=== PATIENT | male | born 1945 | race Caucasian/White ===

== ENCOUNTER 2017-06-14 13:14 | Emergency (ER) | payer MEDICARE, BC, SELFPAY ==
[2017-06-14 13:15] VITALS: BP 149/75; PULSE 107; RESP 17; TEMP 36.4; O2SAT 97; BMI 27.3
--- NOTE | 2017-06-14 14:45 | RAD_ITS ---
STUDY: X-RAY - LEFT ANKLE REASON FOR EXAM: Male, 72 years old. Pain following a fall. TECHNIQUE: 3 view(s) of the ankle. COMPARISON: None. FINDINGS: Normal visualized distal tibia and fibula. Nondisplaced avulsion fracture of the medial malleolus. Nondisplaced oblique fracture of the lateral malleolus. Normal tibiotalar articulation and ankle mortise. Normal visualized talus and calcaneus. The visualized subtalar, talonavicular, calcaneocuboid and tarsal articulations are normal. Diffuse soft tissue swelling. RAD/Ankle min 3 Views IMPRESSION: Nondisplaced avulsion fracture of the medial malleolus as well as oblique fracture of the lateral malleolus with diffuse soft tissue swelling. Electronically Signed: Alex Cevallos MD at 15:18 EST Tel [phone], Service support ,
[2017-06-14] MEDS: Acetaminophen 500 MG Tablet 1000 MG PO (14:47)
--- NOTE | 2017-06-14 16:18 | ED.DCSUM_ITS ---
- ER Visit Summary Date of Service: 06/14/17 Chief Complaint: Ankle injury History of Present Illness: The patient is a 72 M who injured his left ankle yesterday. He felt tired and actually fell asleep when he was standing. This happens to him from time to time. During the fall, he woke up but could not catch himself. He fell and twisted his left ankle. Denies any other injuries or complaints. He does fall asleep from time to time and does not want to be evaluated for this. Physical Examination: Vital signs unremarkable. Head and neck atraumatic. Heart regular. Lungs clear. Abdomen soft. Left ankle is diffusely swollen and tender bilaterally. The right ankle is atraumatic. Foot is nontender. Proximal tib/fib nontender. Knee and the remainder of his left leg unremarkable. Pulses and sensation intact. Skin intact. Test Results: X-ray shows bimalleolar fracture. Emergency Department Course and Treatment: Patient was treated with Tylenol. Pain was under control. I discussed the findings with Dr. Nye. Patient has used crutches before and feels comfortable with crutches. He said he can be careful and will not fall asleep. Splint was placed. Patient was neurovascularly intact afterwards. Precautions were discussed. He will follow- up as an outpatient with orthopedics. Rest, ice, elevate. Short course of [place]. Wiggle toes intermittently. Return if worse. Elevation was stressed again. Treatment Plan: As above Disposition: Discharged Impression: 1. Left bimalleolar fracture This note was generated with [employer] dictation software. It may contain incorrect words, spelling, and punctuation that were not noted in review of the chart prior to signing ED Disposition - Plan for ED Patient: Chief Complaint: Lower Extremity Injury Referrals: Care Physician,No Primary [Primary Care Provider] -
--- NOTE | 2017-06-14 16:20 | DCINST.ED_ITS ---
ED Disposition - Plan for ED Patient: Chief Complaint: Lower Extremity Injury Instructions: ED Fx Ankle General Prescriptions: Hydrocodone Bitart/Apap 5-325 [[place] 5/325] 1 tab PO Q6H PRN PRN 3 Days #10 tab PRN Reason: Pain Referrals: Hannah Mckenna DO [STAFF PHYSICIAN] -
[2017-06-14 16:47] VITALS: PULSE 100; RESP 16; O2SAT 98
== END 2017-06-14 16:48 | disposition home or self-care (01) ==
PROVIDERS: Emergency Provider Emergency Medicine
DX: S82.845A Nondisplaced bimalleolar fracture of left lower leg, initial encounter for closed fracture (principal); W19.XXXA Unspecified fall, initial encounter; Y93.89 Activity, other specified; Z72.0 Tobacco use
CPT/HCPCS: 29515; 73610; 99283

== ENCOUNTER 2017-06-29 06:23 | Day surgery (SDC) | payer MEDICARE, BC, SELFPAY ==
[2017-06-29] VITALS (8 sets, daily range): BP systolic 98–150; BP diastolic 59–78; PULSE 80–94; RESP 16–18; TEMP 36.1–36.8; O2SAT 87–100; BMI 29.3
--- NOTE | 2017-06-29 06:34 | EKG12_ITS ---
Test Reason : PRE-OP' Blood Pressure : / mmHG Vent. Rate : 091 BPM Atrial Rate : 091 BPM P-R Int : 152 ms QRS Dur : 080 ms QT Int : 362 ms P-R-T Axes : 057 057 055 degrees QTc Int : 445 ms Normal sinus rhythm Normal ECG No previous ECGs available Confirmed by ALESIA CORDERO, HÉCTOR ([id number]), continuity editor SANDRA FAIR ([id number]) on 07/01/2017 2:11:12 PM Referred By: Hannah Mckenna Confirmed By:HÉCTOR DUMAS MD
[2017-06-29 06:58] LABS: Hematocrit 35.4 % (40-54); Hemoglobin 11.7 g/dl (13.0-16.5); Mean Corp Hgb Conc 33.1 g/gl (32-36); Mean Corpuscular Hgb 30.3 pg (27.0-32.0); Mean Corpuscular Volume 91.7 fL (80-94); Platelet Count 449 K/mm3 (150-450); RBC Distribution Width SD 46.8 fl (35.1-43.9); Red Blood Count 3.86 M/mm3 (4.6-6.2); Scan Indicated on CBC? Y/N NO; White Blood Count 7.9 K/mm3 (4.4-11.0)
[2017-06-29 07:15] LABS: Anion Gap 7 (5-15); BUN 26 mg/dL (7-18); BUN/Creat Ratio 23.4 RATIO (10-20); Calcium,Total 9.1 mg/dL (8.5-10.1); Chloride 103 mmol/L (98-107); Creatinine, Serum 1.11 mg/dL (0.70-1.30); EST Glomerular Filtration Rate 69 mL/min (>60); Est Glom Filt Rate - Afr Amer 83 mL/min (>60); Estimated Creatinine Clearance 54.59 ml/min; Glucose 93 mg/dL (74-106); Potassium 4.1 mmol/L (3.5-5.1); Sodium Level 136 mmol/L (136-145)
[2017-06-29] MEDS: Clindamycin 900 MG/50 ML BAG 75 MG IV (08:25)
--- NOTE | 2017-06-29 08:30 | RAD_ITS ---
STUDY: X-RAY - LEFT ANKLE REASON FOR EXAM: Fracture repair. TECHNIQUE: 2 fluoroscopic view(s) of the ankle. COMPARISON: Radiographs 06/14/2017. FINDINGS: There is an orthopedic plate and screws transfixing a distal fibular fracture in anatomic alignment and position with overlying sponge. There are 2 orthopedic screws in the medial malleolus transfixing a fracture in anatomic alignment and position. Electronically Signed: Saman Yeh MD at 10:41 EDT Tel , Service support , RAD/Ankle min 3 Views
[2017-06-29] MEDS: Mupirocin Ointment 22gm Tube 1 APPLIC (10:33)
--- NOTE | 2017-06-29 10:40 | PCM.DC.ORTHO ---
Discharge Diet: No Restrictions - non weight bearing left leg, keep splint on at all times, follow up in 2 weeks in office, call with concerns, elevate leg above heart Discharge Activity: May Not Drive May shower in (days): 1 Ice area for (Minutes): 20 - Every hour while awake. Weight Bearing Status: Weight bearing as tolerated Keep extremity elevated above heart level: Operative Extremity Call your doctor if your incision/area has: Continuous Slow Oozing, Sudden Increased Bleeding, Increased Pain/ Swelling, Increased Redness, Foul Smelling Discharge Call your doctor if you observe: Fever of 101 or Higher, Coldness, Increased Pain, Numbness or Tingling, Change in Color, Calf discomfort Allergies/Adverse Reactions: Allergies memantine [From Namenda] Allergy (Verified 06/28/17 10:16) Unknown Penicillins Allergy (Verified 06/28/17 10:16) Unknown midazolam [From Versed] Adverse Reaction (Verified 06/28/17 10:16) nausea and cold sweat Medications to take at Discharge Aspirin E.C. [Ecotrin] 81 mg PO DAILY@0800 06/20/17 Cholecalciferol (Vitamin D3) [Vitamin D3] 1,000 unit PO DAILY 06/20/17 Fish Oil/Dha/Epa [Fish Oil 1,200 mg Fish Oil] 1 ea PO DAILY 06/20/17 Lisinopril/Hydrochlorothiazide [Zestoretic 01/27.5 Tablet] 1 tab PO DAILY 06/20/17 Melatonin 5 mg PO QHS PRN 06/20/17 Memantine HCl [Namenda Xr] 28 mg PO DAILY 06/20/17 Simvastatin [Zocor] 40 mg PO QHS 06/20/17 Oxycodone HCl/Acetaminophen [Percocet 5/325] 1 - 2 tablet PO Q6H PRN PRN 5 Days #60 tablet 06/29/17 The following prescriptions were given: Oxycodone HCl/Acetaminophen [Percocet 5/325] 1 - 2 tablet PO Q6H PRN PRN 5 Days #60 tablet PRN Reason: Pain Primary Care Physician: Murphy Sarmiento MD [Primary Care Provider] - Please Follow Up With: Hannah Mckenna, - [phone]
--- NOTE | 2017-06-29 10:53 | OP.PCM_ITS ---
Report of Operation Date of Procedure: 06/29/17 Pre-Operative Diagnosis: left bimalleolus ankle fracture Post-Operative Diagnosis: same Surgery/Procedure Performed:: ORIF left ankle Type of Anesthesia:: General Anesthesiologist: Jairo Lawson Estimated Blood Loss (mL): none Fluids Replaced: 1700 ml lr Description of Procedure: Preoperative note Patient is a 72-year-old male who fell and twisted his left ankle. He was seen in the office and noted to have a by mall displaced ankle fracture. Wrist benefits alternatives surgery discussed with patient. Patient was noncompliant with ambulating on his leg he also taken a splint down was walking in a Cam boot. We discussed the risks associated with walking on his cam boot and not following instructions. Knowledge and stated he will not weight-bear on his ankle after surgery. Risks benefits and alternatives surgery discussed with patient. Risks including but not limited to blood loss, blood clot, infection, neurovascular injury, failure procedure, loss of life and loss of limb. Patient is aware like proceed with left ankle open reduction internal fixation repair is indicated. Discussed with patient concerns from infection and postop failure of fixation d/t noncompliance and diabetes, etc. patient aware. if has increased pain or redness to call us with questions/concerns for repeat evaluation as high risk d/t medical comorbidities. patient aware and in agreement of plan. Operative note Patient seen and examined preoperative holding area. Left ankle is marked. Patient is brought to the operating room and placed supine on the operating room table. Signing, anesthesia, antibiotics were administered. Left leg was prepped and draped in usual sterile fashion with a tourniquet around his upper thigh. Bony prominences well-padded SCDs placed on his contralateral limb the patient was bump was placed over under the patient's left hip. We then marked out our incision for lateral malleolus leg was elevated exsanguinated and tourniquet was raised her pressure of 300 torr. We then performed our timeout. We then used a 15 blade cut the skin dissected down times the level of the fracture site. There is abundant callus around the fracture was shortened. We use a combination of a dental pick and a curette to clear out the fracture site. We then decide use a posterior antiglide plate fixation in order to reduce the fracture to the bone. His bone was quite brittle and osteopenic. We pre-bent the 6 hole one third tubular plate. Placed on the posterior aspect just proximal to the fracture site was very told her first screw hole. Ensure that we had good action at the fracture site and use indirect reduction techniques in order to receive her reduction and then maintain it with an placement of our first screw which was a 3.5 mm cortical screw just proximal to the level of the fracture proximally. We then placed another screw distally and the cancellus screw did not show that we had good alignment in the lateral plane which we did have. We placed the appropriate met appropriately drilled and measured cancellus screw in the distal fibula. We then placed a more proximal screw in order to gain dictation proximally another 3.5 which is measured appropriately in place. We placed a lag screw from distal to proximal across the fracture site. This is a 22 mm 3.5 cortical screw. We had good reduction of the fracture site at that point we did irrigate with copious amounts of sterile saline. Then moved to the medial malleolus. We made a curvilinear incision over the tip of the medial malleolus. We light and dissect down with tenotomy syllable of the fracture site which was debrided. We then used to guidewires across the fracture site ensuring that we were not in the joint and anterior and lateral planes. We then measured and placed 244 partially-threaded 4 oh cancellus screws. We inserted both AP and lateral planes good reduction of the fracture site and good placement of our screws which we did have. We irrigated the incision with copious amounts sterile saline. The incisions were closed with deep 2-0 Vicryl and nylon on the lateral malleoli and arturo on the medial mall cutaneous closure. Sterile dressings were applied and a splint was applied. The tourniquet was deflated for total working time of 80 minutes. The patient was transferred to recovery room in stable condition. Patient tolerated the procedure well there were no complications. Please note that patient received a preoperative spinal block. Next Postoperative note Nonweightbearing left leg Crutches at all times or wheelchair Follow-up in 2 weeks Pharmacy has prescription for pain Call with concerns This note was generated with [employer] software. It may contain incorrect words, spelling, and punctuation that were not noted in checking the note before signing.
[2017-06-29] MEDS: HYDROcodone Bitartrate/Apap 5/325 Tablet PO (13:12)
== END 2017-06-29 13:48 | disposition home or self-care (01) ==
LOC: SDC 06:24 → AC 06:26
PROVIDERS: Anesthesiology; PCP Family Medicine; Visit Provider Orthopaedic Surgery
PROC: (CPT 27814; principal; 2017-06-29 08:10)
DX: S82.842A Displaced bimalleolar fracture of left lower leg, initial encounter for closed fracture (principal); X58.XXXA Exposure to other specified factors, initial encounter; M85.872 Other specified disorders of bone density and structure, left ankle and foot; I10 Essential (primary) hypertension; E78.00 Pure hypercholesterolemia, unspecified; R41.3 Other amnesia; F17.200 Nicotine dependence, unspecified, uncomplicated; Z79.82 Long term (current) use of aspirin; Z79.899 Other long term (current) drug therapy
CPT/HCPCS: 01480; 27814; 64445; 36415; 73610; 76000; 80048; 85027; 93005; J7120; J2405

== ENCOUNTER → 2017-07-12 09:59 | Outpatient (CLI) | payer MEDICARE, BC, SELFPAY ==
--- NOTE | 2017-07-12 10:12 | RAD_ITS ---
STUDY: X-RAY - LEFT ANKLE REASON FOR EXAM: Male, 72 years old. Fracture TECHNIQUE: 3 view(s) of the ankle. COMPARISON: 06/29/2017 FINDINGS: There is fixation of the medial and lateral malleolus. There are surgical arturo at the medial soft tissues. Posterior splint is applied. There is prominent lucency at the transverse medial malleolar fracture site. Normal visualized talus and calcaneus. The visualized subtalar, talonavicular, calcaneocuboid and tarsal articulations are normal. The soft tissue structures are unremarkable. RAD/Ankle min 3 Views IMPRESSION: ORIF, medial, lateral malleolus Electronically Signed: Frederick David MD at 22:01 EDT Tel , Service support ,
== END ==
PROVIDERS: Visit Provider Orthopaedic Surgery
DX: M25.572 Pain in left ankle and joints of left foot (principal); Z98.890 Other specified postprocedural states
CPT/HCPCS: 73610

== ENCOUNTER → 2017-07-19 10:25 | Outpatient (CLI) | payer MEDICARE, BC, SELFPAY ==
--- NOTE | 2017-07-19 10:27 | RAD_ITS ---
STUDY: X-RAY - LEFT ANKLE REASON FOR EXAM: Fracture. TECHNIQUE: 3 view(s) of the ankle. COMPARISON: Radiographs 07/12/2017 and fluoroscopic images 06/29/2017. FINDINGS: There is orthopedic plate and screws transfixing a distal fibular fracture in anatomic alignment and position. As noted on the prior study is a prominent lucency of the transverse medial malleolar fracture with 2 adjacent orthopedic screws. Normal visualized talus and calcaneus. The visualized subtalar, talonavicular, calcaneocuboid and tarsal articulations are normal. There is an overlying cast. RAD/Ankle min 3 Views IMPRESSION: Operative reduction internal fixation of bimalleolar fracture without interval change. Electronically Signed: Saman Yeh MD at 10:44 EDT Tel , Service support ,
== END ==
PROVIDERS: Visit Provider Orthopaedic Surgery
DX: M25.572 Pain in left ankle and joints of left foot (principal)
CPT/HCPCS: 73610

== ENCOUNTER 2017-07-20 10:46 | Day surgery (SDC) | payer MEDICARE, BC, SELFPAY ==
[2017-07-20] VITALS (7 sets, daily range): BP systolic 118–139; BP diastolic 51–86; PULSE 88–100; RESP 16–20; TEMP 36.3–36.7; O2SAT 94–98; BMI 27.1
--- NOTE | 2017-07-20 15:27 | RAD_ITS ---
STUDY: X-RAY - LEFT ANKLE REASON FOR EXAM: Male, 72 years old. Fracture TECHNIQUE: 4 view(s) of the ankle. COMPARISON: 07/12/2017 FINDINGS: Compared to prior examination, 2 screws are removed from the medial malleolus and new fixation hardware is applied. RAD/Ankle 2 Views IMPRESSION: Revision fixation at the distal tibia Electronically Signed: Frederick David MD at 21:33 EDT Tel , Service support ,
[2017-07-20] MEDS: Clindamycin 900 MG/50 ML BAG 75 MG IV (15:35)
[2017-07-20] MEDS: Mupirocin Ointment 22gm Tube 1 APPLIC (16:56)
--- NOTE | 2017-07-20 17:27 | PCM.DC.ORTHO ---
Discharge Diet: No Restrictions - non weight bearing left leg at all times, elevate toes above nose, call with concerns Discharge Activity: May Not Drive May shower in (days): 1 Ice area for (Minutes): 20 - Every hour while awake. Weight Bearing Status: Weight bearing as tolerated Keep extremity elevated above heart level: Operative Extremity Call your doctor if your incision/area has: Continuous Slow Oozing, Sudden Increased Bleeding, Increased Pain/ Swelling, Increased Redness, Foul Smelling Discharge Call your doctor if you observe: Fever of 101 or Higher, Coldness, Increased Pain, Numbness or Tingling, Change in Color, Calf discomfort Allergies/Adverse Reactions: Allergies memantine [From Namenda] Allergy (Verified 07/19/17 11:51) Unknown Penicillins Allergy (Verified 07/19/17 11:51) Unknown midazolam [From Versed] Adverse Reaction (Verified 07/19/17 11:51) nausea and cold sweat Medications to take at Discharge Aspirin E.C. [Ecotrin] 81 mg PO DAILY@0800 06/20/17 Cholecalciferol (Vitamin D3) [Vitamin D3] 1,000 unit PO DAILY 06/20/17 Fish Oil/Dha/Epa [Fish Oil 1,200 mg Fish Oil] 1 ea PO DAILY 06/20/17 Lisinopril/Hydrochlorothiazide [Zestoretic 10/12.5 Tablet] 1 tab PO DAILY 06/20/17 Melatonin 5 mg PO QHS PRN 06/20/17 Memantine HCl [Namenda Xr] 28 mg PO DAILY 06/20/17 Simvastatin [Zocor] 40 mg PO QHS 06/20/17 Oxycodone HCl/Acetaminophen [Percocet 5/325] 1 - 2 tablet PO Q6H PRN PRN 5 Days #60 tablet 06/29/17 Hydrocodone Bitart/Apap 5-325 [[place] 5MG-325MG] 1 - 2 tablet PO Q6H PRN PRN #56 tablet 07/20/17 The following prescriptions were given: Hydrocodone Bitart/Apap 5-325 [[place] 5MG-325MG] 1 - 2 tablet PO Q6H PRN PRN #56 tablet PRN Reason: Pain Primary Care Physician: Murphy Sarmiento [Primary Care Provider] - Please Follow Up With: Hannah Mckenna, - [phone]
--- NOTE | 2017-07-20 17:33 | OP.PCM_ITS ---
Report of Operation Date of Procedure: 07/20/17 Pre-Operative Diagnosis: right malreduction medial malleolus Post-Operative Diagnosis: same Surgery/Procedure Performed:: right medial malleolus revision orif with hook plate Type of Anesthesia:: General Anesthesiologist: Amarjit De La Rosa Replaced: see anesthesia chart Description of Procedure: Preoperative note Patient is a 72-year-old male who is status post ORIF by mouth fracture. Patient was walking on his left ankle medially postop x-rays confirmed a mild reduced medial malleolus piece and discussion was made to return to the upper operating room for revision operative fixation of his medial mall. Risks benefits and alternative surgery were discussed with patient. Risks including but not limited to blood loss, blood clot, infection, neurovascular injury, failure of procedure, need for revision surgery, loss of life, and loss of limb. Patient is aware he would like to proceed with a left ankle revision of medial malleolus ORIF. Operative note Patient seen and examined proper failure. Left leg was marked. Patient brought to the operating placed supine on the operating table. Signed, anesthesia, antibiotics were administered. The left leg was prepped and draped in usual sterile fashion with a tourniquet around his upper thigh. We marked out our incision extending his current incision and extended it by about a centimeter and half. We then elevated the segment of the leg and tourniquet was raised to a pressure of 250 torr. A timeout was performed. Then used a 15 blade to cut through the skin and then dissected down to noninvasive level of the fracture site. We then debrided out the fracture site and were able to find our previously placed screws when this was actually fractured through the posterior aspect of the distal fracture piece. These were removed in their entirety. We then attempted to reduce the piece however the bone was so fragile that any type of reduction that was direct or indirect did not lead to an adequate reduction using this for cannulated screws. We then converted to percutaneous hook plate. We placed a hook plate we plan placement of our previous 4-0 cannulated screws through the distal aunts aspect of the the plate in the superior and lateral. This brought the piece back down a little bit closer to its original pre-fracture site. We then placed 2 3.5 screws and standard technique want in the most proximal one we used a percutaneous technique. After placing all of the screws and then retightening the fluoroscopy cancellus screw we had better reduction of the fracture site. We irrigated the incision with copious amounts of sterile saline. We took numerous fluoroscopy fluoroscopic images throughout the entire case. We confirmed our placement on AP and lateral. The skin was then closed after it was irrigated With meth sterile saline and the skin was closed with deep 2-0 subcutaneous Vicryl and the skin was closed with interrupted 4-0 nylon stitches. Sterile dressings were applied and a posterior splint was applied was placed in the left lower extremity. The patient tolerated procedure well there were no complications patient was transferred to the recovery room in stable condition. Next Postoperative note Nonweightbearing left leg Hospital pharmacy has pain prescription Call with increased pain numbness tingling or other issues arise This note was generated with [employer] dictation software. It may contain incorrect words, spelling, and punctuation that were not noted in checking the note before signing.
--- NOTE | 2017-07-20 18:02 | SUR.PHASEI ---
Addendum entered by Radha Rios 07/20/17 18:06: CONTINUES TO BE RESTLESS, SOME IMPROVEMENT NOTED. DENIES NEEDING TO VOID, NAUSEA, OR PAIN. MONITORING ONE ON ONE. WILL NOT KEEP FOOT ELEVATED OR ICEPACK IN PLACE. Original Note: ARRIVED TO PACU FROM O.R. AT 1722, EXTREMELY RESTLESS, COMBATIVE AND BELLIGERENT REQUIRING 2-3 STAFF MEMBERS TO MAINTAIN BOTH PATIENT AND STAFF SAFETY. OCCASIONALLY BANGING SURGICAL LEG/SITE ON SIDERAILS AT TIMES IN HIS AGITATION. CALLED DR LEÓN, ANESTHESIA AT 1740 AGITATION CONTINUES, ORDER FOR ATIVAN RECEIVED.
--- NOTE | 2017-07-20 19:28 | SUR.PHASEII ---
AT 1855, REVIEWED D/C INSTRUCTIONS WITH NEPHGARRETT HOPSON WHO IS TAKING PATIENT HOME. PATIENT STATES HE HAS PERCOCET AT HOME, NEPHEW WILL VET TECH NEW [place] SCRIPT TOMORROW. REPEATEDLY REINFORCED NON-WEIGHT BEARING STATUS. PATIENT HAS DIFFICULTY RETAINING INFORMATION, REINFORCED WITH NEPHEW THAT SOMEONE SHOULD BE SPENDING THE NIGHT WITH PATIENT TO ENSURE HIS SAFETY AND COMPLIANCE WITH POST-OP INSTRUCTIONS.
== END 2017-07-20 19:20 | disposition home or self-care (01) ==
LOC: SDC 10:47 → AC 10:49
PROVIDERS: Visit Provider Orthopaedic Surgery
PROC: (CPT 27766; principal; 2017-07-20 12:20)
DX: S82.842G Displaced bimalleolar fracture of left lower leg, subsequent encounter for closed fracture with delayed healing (principal); W17.89XD Other fall from one level to another, subsequent encounter; Y93.01 Activity, walking, marching and hiking; I10 Essential (primary) hypertension; E78.00 Pure hypercholesterolemia, unspecified; R41.3 Other amnesia; F17.200 Nicotine dependence, unspecified, uncomplicated; Z79.82 Long term (current) use of aspirin; Z79.899 Other long term (current) drug therapy
CPT/HCPCS: 01480; 27766; 64445; 73600; 76000; J7120; A4216

== ENCOUNTER → 2017-08-04 10:53 | Outpatient (CLI) | payer MEDICARE, BC, SELFPAY ==
--- NOTE | 2017-08-04 10:54 | RAD_ITS ---
STUDY: X-RAY - LEFT ANKLE REASON FOR EXAM: Postop. TECHNIQUE: 3 view(s) of the ankle. COMPARISON: Fluoroscopic images 07/20/2017. FINDINGS: There are orthopedic plates and screws transfixing distal tibial and fibular fractures in anatomical alignment and position. There is callus formation at the fibular fracture site. Normal tibiotalar articulation and ankle mortise. Normal visualized talus and calcaneus. The visualized subtalar, talonavicular, calcaneocuboid and tarsal articulations are normal. There is an overlying cast. RAD/Ankle min 3 Views IMPRESSION: Operative reduction internal fixation of distal tibial and fibular fractures in anatomical alignment and position. Electronically Signed: Saman Yeh MD at 11:38 EDT Tel , Service support ,
== END ==
PROVIDERS: Visit Provider Orthopaedic Surgery
DX: S82.842A Displaced bimalleolar fracture of left lower leg, initial encounter for closed fracture (principal); X58.XXXA Exposure to other specified factors, initial encounter
CPT/HCPCS: 73610

== ENCOUNTER → 2017-09-08 09:37 | Outpatient (CLI) | payer MEDICARE, BC, SELFPAY ==
--- NOTE | 2017-09-08 09:40 | RAD_ITS ---
STUDY: X-RAY - LEFT ANKLE REASON FOR EXAM: Male, 72 years old. Postoperative evaluation. TECHNIQUE: 3 view(s) of the ankle. COMPARISON: Comparison is made with prior study dated August 04, 2014. FINDINGS: The patient is status post open reduction and internal fixation of the distal tibia and fibula utilizing screws and sideplate fixation device. There is good alignment. Normal tibiotalar articulation and ankle mortise. The mineralization of the bony structures. The visualized subtalar, talonavicular, calcaneocuboid and tarsal articulations are normal. The soft tissue structures are unremarkable. RAD/Ankle min 3 Views IMPRESSION: Status post ORIF of the distal fibula and tibia. The alignment is maintained. Electronically Signed: Alex Cevallos MD at 13:49 EDT Tel [phone], Service support ,
== END ==
PROVIDERS: Visit Provider Physician Assistant
DX: S82.842A Displaced bimalleolar fracture of left lower leg, initial encounter for closed fracture (principal)
CPT/HCPCS: 73610

== ENCOUNTER 2017-10-13 14:30 | Outpatient (RCR) | payer MEDICARE, BC, SELFPAY ==
--- NOTE | 2017-09-15 13:41 | HP.PTEVAL ---
Patient's Visit Information TRISH RAPHAEL is a 72 year old M referred to Physical Therapy by Hannah Mckenna DO with a diagnosis of Left ORIF. Date of Evaluation: 09/15/17 Physical Therapist: Robyn Noble - Visit Plan Frequency: 2x /Week Duration: 4 Weeks Plan: Focus on LE ROM, strength and gait training- can do therapy outside the boot per Dr. Mckenna - Subjective Subjective: Broke his ankle on both sides 06/14/2017 feel sleep standing up and broke it on the way done. Went to the ER the next day and then sent him to see Dr. Mckenna- she performed surgery x2 and the final was an ankle revision 07/20/2017. Was non weight bearing until he saw MD 09/08/17 who gave him WBAT in the CAM walker. He is not trying to push the ankle- does nto want to take the boot off for a long time. Worst: 3/10. Agg: being up on it Eases: rest Best: 0/10. Pain is located on the medial and lateral joint line of the left ankle. Does have some radiating pain up to right below the knee. No N/T in the toes. Patient reports that he has fallen a few times since he has been home. MD is aware of his falling asleep standing up. Patient is full I but does have family that can help out as needed. Does not use an assistive device. Patient does drive and lives alone. Sleep:not disturbed due to the boot- he doesn't sleep well regardless. PMhx/Meds: no change since surgery at the hospital - Objective Posture: FH, RS. Gait: antalgic- will not weight bear without boot. Cam walker on left LE- poor heel/toe pattern. SLS: 5 sec in CAM Walker. Girth: Mall: 28.5 cm; Figure 87.5 cm. ROM: DF: 5 degrees, PF: 15 degrees, Inv: 20 degrees Ever: 15 degrees Knee: WNL. Strength: 4+/5 within available range - Goals Goal 1:: Patient will be I with HEP and progression Goal Time Frame: 4-6 Weeks Goal 2:: Patient will ambulate >300 feet with a normalized gait pattern Goal Time Frame: 4-6 Weeks Goal 3:: Patient will demo 10 sec SLS Goal Time Frame: 4-6 Weeks - Rehabilitation Potential Physical Therapy Diagnosis: Patient presents with hypomobility- he has decreased ROM, strength and muscular endurance leading to abnormal gait and decreased ability to perform ADL's. Rehabilitation Potential: Fair - Anticipated Interventions Patient/Client Instruction: Educate patient on: Benefits of Fitness Program For the Purpose of:: To improve ability to perform ADL's Therapeutic Exercise to Include: Strength training, Endurance training, Balance training, Body mechanics, Postural training, Gait and locomotor training, Passive ROM, Active ROM For the Purpose of:: To improve muscle performance and motor function TENS: Yes Cryotherapy (ice pack, ice massage): Yes Thermo therapy (hot pack): Yes Ultrasound (thermal/non thermal): No For the Purpose of:: To decrease pain Thank you for the opportunity to evaluate your patient. For Medicare and Medicare HMO plans, please review the plan of care and approve it. It will need to be FAXED BACK to us at [phone] for Medicare purposes. Please let me know if there are questions or concerns regarding this plan of care. Physician Signature: Date:
--- NOTE | 2017-10-13 14:25 | HP.PTREVAL_ITS ---
Hannah Mckenna, DO, It has been my pleasure to treat TRISH RAPHAEL over the last 8 visits for Left ORIF. Please see the progress note below for an update on the physical therapy plan of care! Subjective: I felt really good most of the day yesterday. Mild soreness/ throbbing today but overall it is better. Objective/Function: Kept exercise parameters the same as last visit but performed all activities out of the CAM boot. Seemed to tolerate well. Plan Plan: Moitor response and adjust as necessary. Goals Goal 1:: Patient will be I with HEP and progression Goal Time Frame: 4-6 Weeks Goal 2:: Patient will ambulate >300 feet with a normalized gait pattern Goal Time Frame: 4-6 Weeks Goal 3:: Patient will demo 10 sec SLS Goal Time Frame: 4-6 Weeks Anticipated Interventions Patient/Client Instruction: Educate patient on: Benefits of Fitness Program For the Purpose of:: To improve ability to perform ADL's Therapeutic Exercise to Include: Strength training, Endurance training, Balance training, Body mechanics, Postural training, Gait and locomotor training, Passive ROM, Active ROM For the Purpose of:: To improve muscle performance and motor function TENS: Yes Cryotherapy (ice pack, ice massage): Yes Thermo therapy (hot pack): Yes Ultrasound (thermal/non thermal): No For the Purpose of:: To decrease pain Please do not hesitate to contact me at [phone] by phone or Fax: if you have questions or concerns regarding this new plan of care! Sincerely, Robyn Noble
--- NOTE | 2017-10-13 14:53 | HP.PTREVAL_ITS ---
Hannah Mckenna, DO, It has been my pleasure to treat TRISH RAPHAEL over the last 9 visits for Left ORIF. Please see the progress note below for an update on the physical therapy plan of care! Subjective: Patient reports that he is getting better- he wears his boot 50% of the time. He wears it because he feels he can walk faster and further with the boot. Patient reports that its a 1/10 with a hummmmmmmm- dull and achy. Wearing a loafer type shoe. He reports being able to drive a car and is back to all his normal activities but he is not cutting the grass (push mower). There are times he has no pain. Objective/Function: Posture: FH, RS. Gait: antalgic- poor heel/toe pattern without the Cam walker on left LE- SLS: 5 sec no CAM walker ROM: DF: 10 degrees , PF: 35 degrees, Inv: 20 degrees Ever: 15 degrees Knee: WNL. Strength: 4+/5 within available range Plan Plan: PT feels patient is appropriate to continue therapy- he wants to speak to MD about continuation before he commits to more therapy Goals Goal 1:: Patient will be I with HEP and progression Goal Time Frame: 4-6 Weeks Goal Progress: Progressing Goal 2:: Patient will ambulate >300 feet with a normalized gait pattern Goal Time Frame: 4-6 Weeks Goal Progress: Progressing Goal 3:: Patient will demo 10 sec SLS Goal Time Frame: 4-6 Weeks Goal Progress: Progressing Anticipated Interventions Patient/Client Instruction: Educate patient on: Benefits of Fitness Program For the Purpose of:: To improve ability to perform ADL's Therapeutic Exercise to Include: Strength training, Endurance training, Balance training, Body mechanics, Postural training, Gait and locomotor training, Passive ROM, Active ROM For the Purpose of:: To improve muscle performance and motor function TENS: Yes Cryotherapy (ice pack, ice massage): Yes Thermo therapy (hot pack): Yes Ultrasound (thermal/non thermal): No For the Purpose of:: To decrease pain Please do not hesitate to contact me at [phone] by phone or Fax: if you have questions or concerns regarding this new plan of care! Sincerely, Robyn Noble
--- NOTE | 2018-01-10 10:43 | HP.PT.NRP ---
HP - Discharge Summary (1) - Patient Information TRISH RAPHAEL was seen in my office for initial evaluation on 09/15/17. The following Plan of Care was established for this patient: Initial Frequency: 2x /Week Initial Duration: 4 Weeks - Anticipated Interventions Patient/Client Instruction: Educate patient on: Benefits of Fitness Program For the Purpose of:: To improve ability to perform ADL's Therapeutic Exercise to Include: Strength training, Endurance training, Balance training, Body mechanics, Postural training, Gait and locomotor training, Passive ROM, Active ROM For the Purpose of:: To improve muscle performance and motor function TENS: Yes Cryotherapy (ice pack, ice massage): Yes Thermo therapy (hot pack): Yes Ultrasound (thermal/non thermal): No For the Purpose of:: To decrease pain This patient was last seen in our office . Pertinent comments regarding their Physical therapy will appear below: Patient has not attended physical therapy in over 8 weeks. At this time patient is appropriate for d/c and return to MD as needed. At this point I will be discontinuing this patient from physical therapy. I would be happy to see this patient again in the future if found appropriate by the physician. Thank you! Robyn Noble
== END 2017-10-13 19:00 | disposition home or self-care (01) ==
LOC: PT 14:30
PROVIDERS: Visit Provider Orthopaedic Surgery
DX: S82.892D Other fracture of left lower leg, subsequent encounter for closed fracture with routine healing (principal)
CPT/HCPCS: 97110; 97161; 97164

== ENCOUNTER → 2017-12-29 09:46 | Outpatient (CLI) | payer MEDICARE, BC, SELFPAY ==
--- NOTE | 2017-12-29 09:48 | RAD_ITS ---
STUDY: X-RAY - LEFT ANKLE REASON FOR EXAM: Postsurgical follow-up. TECHNIQUE: 3 view(s) of the ankle. COMPARISON: Radiographs 09/08/2017. FINDINGS: There is osteopenia. There is intact orthopedic hardware transfixing healing fractures of the medial malleolus and distal fibula in anatomic alignment and position. Normal tibiotalar articulation and ankle mortise. Normal visualized talus and calcaneus. The visualized subtalar, talonavicular, calcaneocuboid and tarsal articulations are normal. There is soft tissue swelling. RAD/Ankle min 3 Views IMPRESSION: Status post ORIF of healing fractures of the medial malleolus and distal fibula remaining in anatomic alignment and position. Electronically Signed: Saman Yeh MD at 13:01 EDT Tel , Service support ,
== END ==
PROVIDERS: Visit Provider Orthopaedic Surgery
DX: S82.842A Displaced bimalleolar fracture of left lower leg, initial encounter for closed fracture (principal); X58.XXXA Exposure to other specified factors, initial encounter
CPT/HCPCS: 73610

== ENCOUNTER → 2018-02-21 08:59 | Outpatient (CLI) | payer MEDICARE, BC, SELFPAY ==
[2018-02-21 10:21] LABS: Hemoglobin A1c 5.7 % (4.2-6.3)
[2018-02-21 10:30] LABS: AST(SGOT) 22 U/L (15-37); Alanine Aminotransfer ALT/SGPT 26 U/L (16-61); Albumin, Serum 3.8 g/dL (3.2-5.0); Alkaline Phosphatase 105 U/L (45-117); Cholesterol 115 mg/dL (200); High Density Lipoprotein 43 mg/dL; Protein, Total 7.8 g/dL (6.4-8.2); Triglycerides 96 mg/dL; Very Low Density Lipoprotein 19 mg/dL (5-40)
== END ==
PROVIDERS: Referring Provider Family Medicine; Visit Provider Family Medicine
DX: E78.00 Pure hypercholesterolemia, unspecified (principal); E74.39 Other disorders of intestinal carbohydrate absorption; R73.9 Hyperglycemia, unspecified
CPT/HCPCS: 36415; 80061; 80076; 83036

== ENCOUNTER → 2018-03-30 12:45 | Outpatient (CLI) | payer MEDICARE, BC, SELFPAY ==
--- NOTE | 2018-03-30 12:48 | RAD_ITS ---
STUDY: X-RAY - LEFT ANKLE REASON FOR EXAM: Male, 72 years old. Postop. TECHNIQUE: 3 view(s) of the ankle. COMPARISON: 3 views of the left ankle December 29, 2017. FINDINGS: Prior ORIF of medial malleolus fracture with metal hardware as well as prior ORIF of the distal fibular fracture with lateral metal sideplate and screws have healed. No sign of hardware fracture or significant loosening. Normal tibiotalar articulation and ankle mortise. Normal visualized talus and calcaneus. The visualized subtalar, talonavicular, calcaneocuboid and tarsal articulations are normal. Mild soft tissue swelling at the distal lower leg and ankle persists. RAD/Ankle min 3 Views IMPRESSION: Healed prior ORIF of bilateral malleolar fractures with metal hardware. Mild residual soft tissue swelling. Electronically Signed: Tyrell Lancaster MD at 12:20 EST , Service support ,
--- OUTSIDE RECORDS SUMMARY | 2018-05-16 08:06 | XMS RPT_ITS ---
:1945 Author Organization OHIP Support Name Relationship Address Phone R Unavailable Unavailable Unavailable R Unavailable Unavailable Unavailable R Unavailable Unavailable Unavailable FRISTER, EMILIANA Unavailable [id number] + [place] [address] R Unavailable Unavailable Unavailable FRISTER, EMILIANA Unavailable [id number] + [place] [address] R Unavailable Unavailable Unavailable FRISTER, EMILIANA Unavailable [id number] + [place] [address] R Unavailable Unavailable Unavailable FRISTER, EMILIANA Unavailable [id number] + [place] [address] R Unavailable Unavailable Unavailable FRISTER, EMILIANA Unavailable . + [place] [address] R Unavailable Unavailable Unavailable FRISTER, EMILIANA Unavailable [id number] + [place] [address] R Unavailable Unavailable Unavailable FRISTER, EMILIANA Unavailable . + [place] [address] R Unavailable Unavailable Unavailable FRISTER, EMILIANA Unavailable . + [place] [address] R Unavailable Unavailable Unavailable FRISTER, EMILIANA Unavailable . + [place] [address] R Unavailable Unavailable Unavailable FRISTER, EMILIANA Unavailable . +[place] [address] R Unavailable Unavailable Unavailable FRISTER, EMILIANA Unavailable . + [place] [address] R Unavailable Unavailable Unavailable FRISTER, EMILIANA Unavailable . +[place] [address] R Unavailable Unavailable Unavailable FRISTER, EMILIANA Unavailable . +[place] [address] R Unavailable Unavailable Unavailable FRISTER, EMILIANA Unavailable . +[place] [address] R Unavailable Unavailable Unavailable FRISTER, EMILIANA Unavailable . +[place] [address] R Unavailable Unavailable Unavailable FRISTER, EMILIANA Unavailable . +[place] [address] R Unavailable Unavailable Unavailable FRISTER, EMILIANA Unavailable . +[place] [address] R Unavailable Unavailable Unavailable FRISTER, EMILIANA Unavailable . + [place] [address] R Unavailable Unavailable Unavailable FRISTER, EMILIANA Unavailable [id number] + [place] [address] R Unavailable Unavailable Unavailable FRISTER, EMILIANA Unavailable . +[place] [address] R Unavailable Unavailable Unavailable R Unavailable Unavailable Unavailable R Unavailable Unavailable Unavailable Care Team Providers Name Role Phone Elvin Aguilera Attending Unavailable Torsten, Murphy Referring Unavailable Elvin Aguilera Attending Unavailable WaytElvin Referring Unavailable Torsten, Murphy Primary Care Unavailable Ruben Jain Attending Unavailable Primay Care Physicia, No Primary Care Unavailable ChicorelHannah subramanian Attending Unavailable Torsten, Murphy Referring Unavailable Chicorelli, Hannah Attending Unavailable Chicorelli, Hannah Referring Unavailable Torsten, Murphy Primary Care Unavailable ChicHannah mijares Attending Unavailable Primay Care Physicia, No Referring Unavailable ChicorelHannah subramanian Attending Unavailable ChicorelliElodiae Attending Unavailable Torsten, Murphy Referring Unavailable Torsten, Murphy Primary Care Unavailable ChicorelliElodiae Attending Unavailable Chicorelli, Hannah Referring Unavailable Torsten, Murphy Primary Care Unavailable ChicorelliElodiae Attending Unavailable Torsten, Murphy Referring Unavailable Torsten, Murphy Primary Care Unavailable Chicorelli, Hannah Attending Unavailable Chicorelli, Hannah Referring Unavailable Torsten, Murphy Primary Care Unavailable ChicorelliElodiae Attending Unavailable Torsten, Murphy Primary Care Unavailable Chicorelli, Hannah Referring Unavailable Milind Charles Attending Unavailable Chicorelli, Hannah Referring Unavailable Chicorelli, Hannah Attending Unavailable Chicorelli, Hannah Referring Unavailable Torsten, Murphy Primary Care Unavailable ChicorelliElodiae Attending Unavailable Torsten, Murphy Referring Unavailable Torsten, Murphy Primary Care Unavailable ChicorelliElodiae Attending Unavailable Chicorelli, Hannah Attending Unavailable Chicorelli, Hannah Attending Unavailable Torsten, Murphy Referring Unavailable Torsten, Murphy Primary Care Unavailable WaytElvin Attending Unavailable Torsten, Murphy Referring Unavailable Torsten, Murphy Primary Care Unavailable Elvin Aguilera Attending Unavailable BrendentElvin Referring Unavailable Torsten, Murphy Primary Care Unavailable Chicorelli, Hannah Attending Unavailable Chicorelli, Hannah Referring Unavailable Torsten, Murphy Primary Care Unavailable Elvin Aguilera Consulting Unavailable Chicorelli, Hannah Attending Unavailable Torsten, Murphy Referring Unavailable Torsten, Murphy Primary Care Unavailable Chicorelli, Hannah Attending Unavailable Torsten, Murphy Referring Unavailable Torsten, Murphy Primary Care Unavailable Chicorelli, Hannah Attending Unavailable Chicorelli, Hannah Referring Unavailable Torsten, Murphy Primary Care Unavailable Torsten, Murphy Attending Unavailable Torsten, Murphy Referring Unavailable Torsten, Murphy Primary Care Unavailable PROBLEMS PROBLEMS DATE TYPE CONDITION / CODE ATTENDING STATUS SOURCE 03/30/2018 Unknown S82.842A - Displaced Elvin Aguilera Active [facility] bimalleolar [facility] of left lower leg, Hospital initial encounter Repository for closed fracture / S82.842A(ICD-10) 02/21/2018 Unknown E78.00 - Pure Ronnie Sarmientomond Active [facility] hypercholesterolemia [facility] , unspecified / Hospital E78.00(ICD-10) Repository 01/10/2018 Unknown S82.892D - Other Chicorelli, Active [place] fracture of left [facility] lower leg, Hospital subsequent encounter Repository for closed fracture with routine healing / S82.892D(ICD-10) 07/20/2017 Unknown G89.18 - Other acute Chicorelli, Active [place] postprocedural pain Hannah [facility] / G89.18(ICD-10) Hospital Repository 08/05/2017 Unknown S82.842G - Displaced Chicorelli, Active [place] bimalleolar fracture Hannah [facility] of left lower leg, Hospital subsequent encounter Repository for closed fracture with delayed healing / S82.842G(ICD-10) 07/19/2017 Unknown M25.572 - Pain in Chicorelli, Active [place] left ankle and Hannah [facility] joints of left foot Hospital / M25.572(ICD-10) Repository 08/01/2017 Unknown I10 - Essential Araceli, [place] Active [place] (primary) Community hypertension / Hospital I10(ICD-10) Repository PROCEDURES PROCEDURES No Procedure Records FoundRESULTS RESULTS ORTHOPEDIC VISIT Observed: 03/30/2018 Status: F Source: [place] REPORT 2:16 PM [facility] REPOSITORY [facility] [address] [place] [address] OFFICE VISIT Date of Service: 03/30/18 MR#: [id number] Acct: [id number] Name: TRISH RAPHAEL Rep #: [id number] : 1945 Provider: NIKOS Aguilera Age/Sex: 72/M Location: [facility] Status: Signed Intake Intake Visit Reasons: LEFT ANKLE Is patient in pain?: No Allergies memantine [From Namenda] Allergy (Verified 03/30/18 12:43) Unknown Penicillins Allergy (Verified 03/30/18 12:43) Unknown midazolam [From Versed] Adverse Reaction (Verified 03/30/18 12:43) nausea and cold sweat Medications Aspirin E.C. [Ecotrin] 81 mg PO DAILY@0800 06/20/17 [History Confirmed 07/19/17] Cholecalciferol (Vitamin D3) [Vitamin D3] 1,000 unit PO DAILY 06/20/17 [History Confirmed 07/19/17] Fish Oil/Dha/Epa [Fish Oil 1,200 mg Fish Oil] 1 ea PO DAILY 06/20/17 [History Confirmed 07/19/17] Lisinopril/Hydrochlorothiazide [Zestoretic 10/12.5 Tablet] 1 tab PO DAILY 06/20/17 [History Confirmed 07/19/17] Melatonin 5 mg PO QHS PRN 06/20/17 [History Confirmed 07/19/17] Memantine HCl [Namenda Xr] 28 mg PO DAILY 06/20/17 [History Confirmed 07/19/17] Simvastatin [Zocor] 40 mg PO QHS 06/20/17 [History Confirmed 07/19/17] Oxycodone HCl/Acetaminophen [Percocet 5/325] 1 - 2 tab PO Q6H PRN PRN 5 Days #60 tab 06/29/17 [Rx Confirmed 07/19/17] Hydrocodone Bitart/Apap 5-325 [[place]wood 5MG-325MG] 1 - 2 tab PO Q6H PRN PRN #56 tab 07/20/17 [Rx] PFSH Surgical History History of tonsillectomy (Acute) history of skull fracture repair (Acute) Family History Father Diabetes Sister Diabetes Social History Smoking Status: Current every day smoker alcohol intake: never what type of physical activity do you participate in: none HPI LEFT ANKLE: Details: TRISH RAPHAEL is a 72 year old M here today for a followup on his left ankle ORIF, DOS 07/20/17. Patient states that he is doing well and not having any pain in his left ankle. He states that he feels like he is back to normal and has no restrictions. Patient ambulates with normal shoes. He denies any numbness, tingling or other associated symptoms. ROS Const Reports system reviewed and no additional complaints, except as docu Eyes Reports system reviewed and no additional complaints, except as docu ENT Reports system reviewed and no additional complaints, except as docu Card Reports system reviewed and no additional complaints, except as docu Resp Reports system reviewed and no additional complaints, except as docu GI Reports system reviewed and no additional complaints, except as docu Reports system reviewed and no additional complaints, except as docu Skin/Breast Reports system reviewed and no additional complaints, except as docu Neuro Yes system reviewed and no additional complaints, except as docu Psych Reports system reviewed and no additional complaints, except as docu Endo Reports system reviewed and no additional complaints, except as docu Ortho Exam Left Ankle Skin: Yes healed; no Ecchymosis, Soft Tissue Swelling or Erythema Exam: No Ecchymosis, Soft tissue swelling, Erythema, TTP Lateral Malleolus, TTP Medial Malleolus, TTP Deltoid Ligament or TTP ATFL Compartments: soft Anterior Drawer: 0 Tests: Squeeze Test: 1 Motor: Ankle Dorsiflextion: 5, Ankle Plantar Flexion: 5, Ankle Eversion: 5, Ankle Inversion: 5 ANKLE: Patient has no generalized swelling of the ankle. He has incision sites on the medial and lateral ankle that have healed well without any signs of infection. Patient has range of motion that is comparable to the right ankle in his strength is 5 out of 5 compared to the right ankle as well. He has very minimal tenderness on palpation of the medial malleolus Assessment AND Plan Plan Obtained Xrays of patient's left ankle. Personally reviewed Xrays. There is evident indwelling hardware in good position without any evidence of loosening. The lateral and medial malleolus show good healing at this time without any acute fractures, dislocation, or lucency noted. See chart for further details. Patient is doing extremely well at this time. He has been walking on the foot without any pains or discomfort and has not had any restrictions of use on a daily basis. he has ROM comparable to the right as is his strength. Incisions have healed well. His gait is normal entering adn exiting the office. He is pleased with how it feels and is doing well. He does not have restrictions at this time. This note was generated with Dinglepharbation software. It may contain incorrect words, spelling, and punctuation that were not noted in checking the note before signing. Orders Orders: Coding Level of Care Code Off vis,est,level 2 03/30/18 1416 <Electronically signed by Elvin KNOTT> Date Elvin KNOTT Cosigner Signature: Date (if applicable) CC: ANKLE MIN 3 VIEWS Observed: 03/30/2018 Status: F Source: [place] 12:48 PM [facility] REPOSITORY [facility] Imaging Services [address] [place] [address] Ankle min 3 Views MR#: [id number] Acct: [id number] Name: TRISH RAPHAEL Rep #: [id number] : 1945 M 72 From: Benigno Lancaster MD PCP: Murphy Sarmiento Status: REG CLI Study: Ankle min 3 Views Date of Exam: 03/30/18 Exam# [id number] Ordering Dr: Elvin Aguilera STUDY: X-RAY - LEFT ANKLE REASON FOR EXAM: Male, 72 years old. Postop. TECHNIQUE: 3 view(s) of the ankle. COMPARISON: 3 views of the left ankle December 29, 2017. FINDINGS: Prior ORIF of medial malleolus fracture with metal hardware as well as prior ORIF of the distal fibular fracture with lateral metal sideplate and screws have healed. No sign of hardware fracture or significant loosening. Normal tibiotalar articulation and ankle mortise. Normal visualized talus and calcaneus. The visualized subtalar, talonavicular, calcaneocuboid and tarsal articulations are normal. Mild soft tissue swelling at the distal lower leg and ankle persists. RAD/Ankle min 3 Views IMPRESSION: Healed prior ORIF of bilateral malleolar fractures with metal hardware. Mild residual soft tissue swelling. Electronically Signed: Tyrell Lancaster MD at 12:20 EST , Service support , CC: NIKOS Aguilera; Murphy Sarmiento Shingle Bolt Cutter: Signed HEMOGLOBIN A1C Collected: 02/21/2018 Status: F Source: [place] 9:11 AM [facility] REPOSITORY TYPE CODE TESTS RESULT OUT OF RANGE REFERENCE UNITS LAB L501.9985 4.2-6.3 % Normal HGB A1C 5.7 Performed By: #### L501.9985 #### [facility] [address] [place], [place], [address] LIVER PROFILE Collected: 02/21/2018 Status: F Source: [place] 9:11 AM [facility] REPOSITORY TYPE CODE TESTS RESULT OUT OF RANGE REFERENCE UNITS LAB L501.1500 6.4-8.2 g/dL Normal T PROT 7.8 LAB L501.1800 3.2-5.0 g/dL Normal ALB 3.8 LAB L501.1950 2.2-4.2 g/dL Normal GLOB 4.0 LAB L501.4100 15-37 U/L Normal AST 22 LAB L501.4305 45-117 U/L Normal ALK P 105 LAB L501.4405 16-61 U/L Normal ALT 26 LAB L501.4600 0.20-1.00 mg/dL Normal T BILI 0.80 LAB L501.4700 0.00-0.30 mg/dL Normal D BILI 0.20 Performed By: #### L500.3400, L500.4100 #### [facility] [address] [place], [address] LIPID PROFILE Collected: 02/21/2018 Status: F Source: [place] 9:11 AM [facility] REPOSITORY TYPE CODE TESTS RESULT OUT OF RANGE REFERENCE UNITS LAB L501.4900 200 mg/dL Normal CHOL 115 Result Comment: <200 mg/dL Desirable 200-240 mg/dL Borderline >240 mg/dL High Risk LAB L501.5000 mg/dL Normal TRIG 96 Result Comment: The drugs N-Acetylcysteine and Metamizole may falsely depress this assay. Serum Triglycerides Reference Interval Normal <150 mg/dL Borderline high 150 - 199 mg/dL High 200 - 499 mg/dL Very High > or = 500 mg/dL LAB L501.6400 mg/dL Normal HDL 43 Result Comment: The drugs N-Acetylcysteine and Metamizole may falsely depress this assay. Reference Range HDL <40 mg/dL Low HDL Cholesterol HDL >or= 60 mg/dL High HDL Cholesterol LAB L501.6500 0-130 mg/dL Normal LDL 53 LAB L501.6600 5-40 mg/dL Normal VLDL 19 Performed By: #### L500.3400, L500.4100 #### [facility] [address] [place], [address] ORTHOPEDIC VISIT Observed: 01/03/2018 Status: F Source: [place] REPORT 11:18 AM [facility] REPOSITORY [facility] [address] OFFICE VISIT Date of Service: 12/29/17 MR#: [id number] Acct: [id number] Name: TRISH RAPHAEL Jarred Rep #: [id number] : 1945 Provider: Hannah Mckenna DO Age/Sex: 72/M Location: [facility] Status: Signed Intake Intake Visit Reasons: LEFT ANKLE Is patient in pain?: No Allergies memantine [From Namenda] Allergy (Verified 12/29/17 09:55) Unknown Penicillins Allergy (Verified 12/29/17 09:55) Unknown midazolam [From Versed] Adverse Reaction (Verified 12/29/17 09:55) nausea and cold sweat Medications Aspirin E.C. [Ecotrin] 81 mg PO DAILY@0800 06/20/17 [History Confirmed 07/19/17] Cholecalciferol (Vitamin D3) [Vitamin D3] 1,000 unit PO DAILY 06/20/17 [History Confirmed 07/19/17] Fish Oil/Dha/Epa [Fish Oil 1,200 mg Fish Oil] 1 ea PO DAILY 06/20/17 [History Confirmed 07/19/17] Lisinopril/Hydrochlorothiazide [Zestoretic 01/27.5 Tablet] 1 tab PO DAILY 06/20/17 [History Confirmed 07/19/17] Melatonin 5 mg PO QHS PRN 06/20/17 [History Confirmed 07/19/17] Memantine HCl [Namenda Xr] 28 mg PO DAILY 06/20/17 [History Confirmed 07/19/17] Simvastatin [Zocor] 40 mg PO QHS 06/20/17 [History Confirmed 07/19/17] Oxycodone HCl/Acetaminophen [Percocet 5/325] 1 - 2 tab PO Q6H PRN PRN 5 Days #60 tab 06/29/17 [Rx Confirmed 07/19/17] Hydrocodone Bitart/Apap 5-325 [[place] 5MG-325MG] 1 - 2 tab PO Q6H PRN PRN #56 tab 07/20/17 [Rx] PFSH Surgical History History of tonsillectomy (Acute) history of skull fracture repair (Acute) Family History Father Diabetes Sister Diabetes Social History Smoking Status: Current every day smoker alcohol intake: never what type of physical activity do you participate in: none HPI LEFT ANKLE: Details: TRISH RAPHAEL is a 72 year old M here today for s/p left ankle ORIF with revision dos 07/20/17. He states that his ankle feels strange but he has a hard time explaining the feeling. He denies any pain. Patient denies any pain with weightbearing. He continues to have swelling when he is up on his feet for a long time. Patient completed physical therapy. He is currently wearing normal shoes. Denies numbness, tingling or other associated symptoms. He is taking ibuprofen for pain if needed. ROS Const Reports system reviewed and no additional complaints, except as docu Eyes Reports system reviewed and no additional complaints, except as docu ENT Reports system reviewed and no additional complaints, except as docu Card Reports system reviewed and no additional complaints, except as docu Resp Reports system reviewed and no additional complaints, except as docu GI Reports system reviewed and no additional complaints, except as docu Reports system reviewed and no additional complaints, except as docu Musc Reports joint swelling Skin/Breast Reports system reviewed and no additional complaints, except as docu Neuro Yes system reviewed and no additional complaints, except as docu Psych Reports system reviewed and no additional complaints, except as docu Endo Reports system reviewed and no additional complaints, except as docu Assessment AND Plan 1. Closed displaced bimalleolar fracture of left ankle with delayed healing, subsequent encounter S82.842G Plan patient still has not completely healed fracture site, but no obvious signs of infection today, is a multipack smoker per day and cardiac issues. will continue to follow him for signs of complete healing. at this stage, is delayed healing and told to stop or at least limit smoking if he can. patient told to wear his compression stockings to limit his swelling as well. patient has better motion but still stiff and needs to work on his rom on his own as much as possible. will repeat xrays and ascertain healing and possible need for bone stimulator vs ct scan at next visit if still not healing. patient aware. no pain with weight bearing or on physical exam to his ankle at fracture site. X-rays were reviewed. There is good alignment and minimal lucency. Explained that smoking inhibits healing and that he should quit. He should try compression sock and continue to work on rom. Follow up in 3 months or sooner if pain, swelling, numbness or associated symptoms, or concerns develop. All questions answered. Patient in agreement of plan. Plan Detail Other Orders Orders: Coding Level of Care Code Off vis,est,level 3 Diagnoses Closed displaced bimalleolar fracture of left ankle with delayed healing, subsequent encounter S82.842G Encounter type: subsequent encounter Fracture healing: with delayed healing Fracture type: closed 01/03/18 1118 <Electronically signed by Hannah Mckenna DO> Date Hannah Mckenna DO Cosigner Signature: Date (if applicable) CC: ANKLE MIN 3 VIEWS Observed: 12/29/2017 Status: F Source: [place] 9:48 AM [facility] REPOSITORY [facility] Imaging Services [address] [place] [address] Ankle min 3 Views MR#: [id number] Acct: [id number] Name: TRISH RAPHAEL Rep #: [id number] : 1945 M 72 From: Saman Yeh MD PCP: Murphy Sarmiento Status: REG CLI Study: Ankle min 3 Views Date of Exam: 12/29/17 Exam# [id number] Ordering Dr: Hannah Mckenna DO STUDY: X-RAY - LEFT ANKLE REASON FOR EXAM: Postsurgical follow-up. TECHNIQUE: 3 view(s) of the ankle. COMPARISON: Radiographs 09/08/2017. FINDINGS: There is osteopenia. There is intact orthopedic hardware transfixing healing fractures of the medial malleolus and distal fibula in anatomic alignment and position. Normal tibiotalar articulation and ankle mortise. Normal visualized talus and calcaneus. The visualized subtalar, talonavicular, calcaneocuboid and tarsal articulations are normal. There is soft tissue swelling. RAD/Ankle min 3 Views IMPRESSION: Status post ORIF of healing fractures of the medial malleolus and distal fibula remaining in anatomic alignment and position. Electronically Signed: Saman Yeh MD at 13:01 EDT Tel , Service support , CC: Murphy Sarmiento; Hannah Mckenna DO Shingle Bolt Cutter: Signed ORTHOPEDIC VISIT Observed: 11/03/2017 Status: F Source: [place] REPORT 12:41 PM [facility] REPOSITORY [facility] [address] [place] [address] OFFICE VISIT Date of Service: 10/21/17 MR#: [id number] Acct: [id number] Name: TRISH RAPHAEL Rep #: [id number] : 1945 Provider: Hannah Mckenna DO Age/Sex: 72/M Location: [facility] Status: Signed Intake Intake Visit Reasons: LEFT ANKLE Allergies memantine [From Namenda] Allergy (Verified 09/08/17 09:39) Unknown Penicillins Allergy (Verified 09/08/17 09:39) Unknown midazolam [From Versed] Adverse Reaction (Verified 09/08/17 09:39) nausea and cold sweat Medications Aspirin E.C. [Ecotrin] 81 mg PO DAILY@0800 06/20/17 [History Confirmed 07/19/17] Cholecalciferol (Vitamin D3) [Vitamin D3] 1,000 unit PO DAILY 06/20/17 [History Confirmed 07/19/17] Fish Oil/Dha/Epa [Fish Oil 1,200 mg Fish Oil] 1 ea PO DAILY 06/20/17 [History Confirmed 07/19/17] Lisinopril/Hydrochlorothiazide [Zestoretic 10/12.5 Tablet] 1 tab PO DAILY 06/20/17 [History Confirmed 07/19/17] Melatonin 5 mg PO QHS PRN 06/20/17 [History Confirmed 07/19/17] Memantine HCl [Namenda Xr] 28 mg PO DAILY 06/20/17 [History Confirmed 07/19/17] Simvastatin [Zocor] 40 mg PO QHS 06/20/17 [History Confirmed 07/19/17] Oxycodone HCl/Acetaminophen [Percocet 5/325] 1 - 2 tab PO Q6H PRN PRN 5 Days #60 tab 06/29/17 [Rx Confirmed 07/19/17] Hydrocodone Bitart/Apap 5-325 [[place] 5MG-325MG] 1 - 2 tab PO Q6H PRN PRN #56 tab 07/20/17 [Rx] PFSH Surgical History History of tonsillectomy (Acute) history of skull fracture repair (Acute) Family History Father Diabetes Sister Diabetes Social History Smoking Status: Current every day smoker alcohol intake: never what type of physical activity do you participate in: none HPI LEFT ANKLE: Details: TRISH RAPHAEL is a 72 year old M here today for f/u left ankle orif with revision 07/20/17. He is walking with no assistance and no brace. He complains of pain and swelling but the pain is not bad. Random sharp pains but not associated with any certain activity and they are very short in duration. He has mild swelling today, well healed incisions and no signs of infection. Denies numbness, tingling or other associated symptoms. Ortho Exam Left Ankle Skin: Yes CDI, healed and Soft Tissue Swelling Contralateral Normal: Yes Exam: Yes Soft tissue swelling Compartments: soft Dorsiflexion 0-20: 15 degrees Plantar Flexion 0-40: 35 degrees Tests: Camacho Test: 1, Squeeze Test: 1 Assessment AND Plan 1. Closed displaced bimalleolar fracture of left ankle with routine healing, subsequent encounter S82.853M Plan Instructed to try compression socks if needed, work on increasing his activities and walk more. He can expect swelling for 18 months. Follow up in 8wks with repeat xrays or sooner if pain, swelling, numbness or associated symptoms, or concerns develop. All questions answered. Patient in agreement of plan. Coding Level of Care Code Off vis,est,level 2 Diagnoses Closed displaced bimalleolar fracture of left ankle with routine healing, subsequent encounter S82.825M Encounter type: subsequent encounter Fracture healing: with routine healing Fracture type: closed 11/03/17 1241 <Electronically signed by Hannah Mckenna DO> Date Hannah Pena Signature: Date (if applicable) CC: RE-EVALUATION - PT (1) Observed: 10/13/2017 Status: F Source: TERRY 2:53 PM [facility] REPOSITORY [facility] [place] [address] Fax REEVALUATION / MEDICARE RECERTIFICATION PHYSICAL THERAPY MR#: [id number] Acct: [id number] Name: TRISH RAPHAEL Rep #: [id number] : 1945 72 From: Robyn Noble DPT Referring DrJonnathan: Hannah Mckenna DO Status: REG RCR Insurance: MEDICARE PART A B ANTHEM Hannah Mckenna, DO, It has been my pleasure to treat TRISH RAPHAEL over the last 9 visits for Left ORIF. Please see the progress note below for an update on the physical therapy plan of care! Subjective: Patient reports that he is getting better- he wears his boot 50% of the time. He wears it because he feels he can walk faster and further with the boot. Patient reports that its a 1/10 with a hummmmmmmm- dull and achy. Wearing a loafer type shoe. He reports being able to drive a car and is back to all his normal activities but he is not cutting the grass (push mower). There are times he has no pain. Objective/Function: Posture: FH, RS. Gait: antalgic- poor heel/toe pattern without the Cam walker on left LE- SLS: 5 sec no CAM walker ROM: DF: 10 degrees, PF: 35 degrees, Inv: 20 degrees Ever: 15 degrees Knee: WNL. Strength: 4+/5 within available range Plan Plan: PT feels patient is appropriate to continue therapy- he wants to speak to MD about continuation before he commits to more therapy Goals Goal 1:: Patient will be I with HEP and progression Goal Time Frame: 4-6 Weeks Goal Progress: Progressing Goal 2:: Patient will ambulate >300 feet with a normalized gait pattern Goal Time Frame: 4-6 Weeks Goal Progress: Progressing Goal 3:: Patient will demo 10 sec SLS Goal Time Frame: 4-6 Weeks Goal Progress: Progressing Anticipated Interventions Patient/Client Instruction: Educate patient on: Benefits of Fitness Program For the Purpose of:: To improve ability to perform ADL's Therapeutic Exercise to Include: Strength training, Endurance training, Balance training, Body mechanics, Postural training, Gait and locomotor training, Passive ROM, Active ROM For the Purpose of:: To improve muscle performance and motor function TENS: Yes Cryotherapy (ice pack, ice massage): Yes Thermo therapy (hot pack): Yes Ultrasound (thermal/non thermal): No For the Purpose of:: To decrease pain Please do not hesitate to contact me at [phone] by phone or if you have questions or concerns regarding this new plan of care! Sincerely, Robyn Noble <Electronically signed by Robyn Noble DPT> 10/13/17 1454 CC: Murphy Sarmiento; Hannah Mckenna DO ELR Signed For Medicare only, by signing this I certify the plan of care. Physicians Signature Date RE-EVALUATION - PT (1) Observed: 10/13/2017 Status: F Source: CHELSEA 2:25 PM [facility] REPOSITORY [facility] [address] [place] [address] Fax REEVALUATION / MEDICARE RECERTIFICATION PHYSICAL THERAPY MR#: [id number] Acct: [id number] Name: TRISH RAPHAEL Rep #: [id number] : 1945 72 From: Robyn Noble DPLisa Referring Dr.: Hannah Mckenna DO Status: REG RCR Insurance: MEDICARE PART A B GUDELIA Mckenna DO, It has been my pleasure to treat TRISH RAPHAEL over the last 8 visits for Left ORIF. Please see the progress note below for an update on the physical therapy plan of care! Subjective: I felt really good most of the day yesterday. Mild soreness/throbbing today but overall it is better. Objective/Function: Kept exercise parameters the same as last visit but performed all activities out of the CAM boot. Seemed to tolerate well. Plan Plan: Moitor response and adjust as necessary. Goals Goal 1:: Patient will be I with HEP and progression Goal Time Frame: 4-6 Weeks Goal 2:: Patient will ambulate >300 feet with a normalized gait pattern Goal Time Frame: 4-6 Weeks Goal 3:: Patient will demo 10 sec SLS Goal Time Frame: 4-6 Weeks Anticipated Interventions Patient/Client Instruction: Educate patient on: Benefits of Fitness Program For the Purpose of:: To improve ability to perform ADL's Therapeutic Exercise to Include: Strength training, Endurance training, Balance training, Body mechanics, Postural training, Gait and locomotor training, Passive ROM, Active ROM For the Purpose of:: To improve muscle performance and motor function TENS: Yes Cryotherapy (ice pack, ice massage): Yes Thermo therapy (hot pack): Yes Ultrasound (thermal/non thermal): No For the Purpose of:: To decrease pain Please do not hesitate to contact me at [phone] by phone or if you have questions or concerns regarding this new plan of care! Sincerely, Robyn Noble <Electronically signed by Robyn Noble DPT> 10/13/17 142 CC: Murphy Sarmiento; Hannah Mckenna DO ELR Signed For Medicare only, by signing this I certify the plan of care. Physicians Signature Date INITAL EVALUATION (1) Observed: 09/15/2017 Status: F Source: CHELSEA - PT 1:41 PM [facility] REPOSITORY [facility] [place] [address] Fax REHABILITATION SERVICES INITIAL EVALUATION MR#: [id number] Acct: [id number] Name: TRISH RAPHAEL Rep #: [id number] : 1945 72 From: Robyn Noble DPT Referring Dr.: Hannah Mckenna DO Status: REG RCR Insurance: MEDICARE PART A B ANTHEM Patient's Visit Information TRISH RAPHAEL is a 72 year old M referred to Physical Therapy by Hannah Mckenna DO with a diagnosis of Left ORIF. Date of Evaluation: 09/15/17 Physical Therapist: Robyn Noble - Visit Plan Frequency: 2x /Week Duration: 4 Weeks Plan: Focus on LE ROM, strength and gait training- can do therapy outside the boot per Dr. Mckenna - Subjective Subjective: Broke his ankle on both sides 06/14/2017 feel sleep standing up and broke it on the way done. Went to the ER the next day and then sent him to see Dr. Mckenna- she performed surgery x2 and the final was an ankle revision 07/20/2017. Was non weight bearing until he saw MD 09/08/17 who gave him WBAT in the CAM walker. He is not trying to push the ankle- does nto want to take the boot off for a long time. Worst: 3/10. Agg: being up on it Eases: rest Best: 0/10. Pain is located on the medial and lateral joint line of the left ankle. Does have some radiating pain up to right below the knee. No N/T in the toes. Patient reports that he has fallen a few times since he has been home. MD is aware of his falling asleep standing up. Patient is full I but does have family that can help out as needed. Does not use an assistive device. Patient does drive and lives alone. Sleep:not disturbed due to the boot- he doesn't sleep well regardless. PMhx/Meds: no change since surgery at the hospital - Objective Posture: FH, RS. Gait: antalgic- will not weight bear without boot. Cam walker on left LE- poor heel/toe pattern. SLS: 5 sec in CAM Walker. Girth: Mall: 28.5 cm; Figure 87.5 cm. ROM: DF: 5 degrees, PF: 15 degrees, Inv: 20 degrees Ever: 15 degrees Knee: WNL. Strength: 4+/5 within available range - Goals Goal 1:: Patient will be I with HEP and progression Goal Time Frame: 4-6 Weeks Goal 2:: Patient will ambulate >300 feet with a normalized gait pattern Goal Time Frame: 4-6 Weeks Goal 3:: Patient will demo 10 sec SLS Goal Time Frame: 4-6 Weeks - Rehabilitation Potential Physical Therapy Diagnosis: Patient presents with hypomobility- he has decreased ROM, strength and muscular endurance leading to abnormal gait and decreased ability to perform ADL's. Rehabilitation Potential: Fair - Anticipated Interventions Patient/Client Instruction: Educate patient on: Benefits of Fitness Program For the Purpose of:: To improve ability to perform ADL's Therapeutic Exercise to Include: Strength training, Endurance training, Balance training, Body mechanics, Postural training, Gait and locomotor training, Passive ROM, Active ROM For the Purpose of:: To improve muscle performance and motor function TENS: Yes Cryotherapy (ice pack, ice massage): Yes Thermo therapy (hot pack): Yes Ultrasound (thermal/non thermal): No For the Purpose of:: To decrease pain Thank you for the opportunity to evaluate your patient. For Medicare and Medicare HMO plans, please review the plan of care and approve it. It will need to be FAXED BACK to us at [phone] for Medicare purposes. Please let me know if there are questions or concerns regarding this plan of care. Physician Signature: Date: <Electronically signed by Robyn Noble DPT> 09/15/17 1341 CC: Murphy Mckenna DO ELR Signed For Medicare only, by signing this I certify the plan of care. Physicians Signature Date ORTHOPEDIC VISIT Observed: 09/08/2017 Status: F Source: TERRY REPORT 1:06 PM [facility] REPOSITORY [facility] [address] [place] [address] OFFICE VISIT Date of Service: 09/08/17 MR#: [id number] Acct: [id number] Name: TRISH RAPHAEL Rep #: [id number] : 1945 Provider: NIKOS Aguilera Age/Sex: 72/M Location: [facility] Status: Signed Intake Intake Visit Reasons: LEFT ANKLE Is patient in pain?: Yes Pain scale (1-10): 1 Allergies memantine [From Namenda] Allergy (Verified 09/08/17 09:39) Unknown Penicillins Allergy (Verified 09/08/17 09:39) Unknown midazolam [From Versed] Adverse Reaction (Verified 09/08/17 09:39) nausea and cold sweat Medications Aspirin E.C. [Ecotrin] 81 mg PO DAILY@0800 06/20/17 [History Confirmed 07/19/17] Cholecalciferol (Vitamin D3) [Vitamin D3] 1,000 unit PO DAILY 06/20/17 [History Confirmed 07/19/17] Fish Oil/Dha/Epa [Fish Oil 1,200 mg Fish Oil] 1 ea PO DAILY 06/20/17 [History Confirmed 07/19/17] Lisinopril/Hydrochlorothiazide [Zestoretic 10/12.5 Tablet] 1 tab PO DAILY 06/20/17 [History Confirmed 07/19/17] Melatonin 5 mg PO QHS PRN 06/20/17 [History Confirmed 07/19/17] Memantine HCl [Namenda Xr] 28 mg PO DAILY 06/20/17 [History Confirmed 07/19/17] Simvastatin [Zocor] 40 mg PO QHS 06/20/17 [History Confirmed 07/19/17] Oxycodone HCl/Acetaminophen [Percocet 5/325] 1 - 2 tab PO Q6H PRN PRN 5 Days #60 tab 06/29/17 [Rx Confirmed 07/19/17] Hydrocodone Bitart/Apap 5-325 [Norwood 5MG-325MG] 1 - 2 tab PO Q6H PRN PRN #56 tab 07/20/17 [Rx] PFSH Surgical History History of tonsillectomy (Acute) history of skull fracture repair (Acute) Family History Father Diabetes Sister Diabetes Social History Smoking Status: Current every day smoker alcohol intake: never what type of physical activity do you participate in: none HPI LEFT ANKLE: Details: TRISH RAPHAEL is a 72 year old M here today s/p left ankle revision ORIF dos 07/20/17. Patient notes that he has a twinge of pain over his medial ankle at times but it lasts a second and then is gone. He has had a few falls but states that he has avoided landed on the ankle. He states though that he has not been weightbearing. Patient has been wearing his cam boot at all times. He denies any pain medications. His incisions are healing. Denies numbness, tingling or other associated symptoms. Denies any calf pain. ROS Const Reports system reviewed and no additional complaints, except as docu Eyes Reports system reviewed and no additional complaints, except as docu ENT Reports system reviewed and no additional complaints, except as docu Card Reports system reviewed and no additional complaints, except as docu Resp Reports system reviewed and no additional complaints, except as docu GI Reports system reviewed and no additional complaints, except as docu Reports system reviewed and no additional complaints, except as docu Musc Reports joint pain Skin/Breast Reports system reviewed and no additional complaints, except as docu Neuro Yes system reviewed and no additional complaints, except as docu Psych Reports system reviewed and no additional complaints, except as docu Endo Reports system reviewed and no additional complaints, except as docu Ortho Exam Left Ankle Skin: Yes healed; no Soft Tissue Swelling, Erythema or Ecchymosis Exam: No Soft tissue swelling, Erythema, Ecchymosis, TTP Lateral Malleolus or TTP Medial Malleolus Dorsiflexion 0-20: 10 degrees Plantar Flexion 0-40: 20 degrees ROM: No pain with ROM Motor: Ankle Dorsiflextion: 4 (3-4 ), Ankle Plantar Flexion: 4 (3-4) ANKLE: Incision sites look great showing excellent healing. He has no erythema, swelling, or tenderness over incision sites. No pains over distal fibula or distal tibia. He has negative Homans bilaterally. He does have some decrease in plantar flexion as well as dorsiflexion. He has no pains in the remainder of the foot at this time. Assessment AND Plan Problems 1. Displaced bimalleolar fracture of left lower leg, subsequent encounter for closed fracture with routine healing S82.994A 2. Orthopedic aftercare Z47.89 Plan Obtained Xrays of patient's left ankle. Personally reviewed Xrays along with Dr. Mckenna. 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 We are going to begin physical therapy today to work on ROM and strength of the lower extremity. He needs to continue to wear the walking boot at the same time can begin to increase weight bearing status gradually. He is to continue to use the crutches while increasing weight-bearing status over the next several weeks. Patient is f/u in 6 weeks. He can contact us sooner with any concerns / complaints. Orders Orders: Plan Detail Follow Up 6 Weeks Coding Level of Care Code Global Post Op Diagnoses Displaced bimalleolar fracture of left lower leg, subsequent encounter for closed fracture with routine healing S82.842D Orthopedic aftercare Z47.89 09/08/17 1306 <Electronically signed by Elvin KNOTT> Date Elvin KNOTT Cosigner Signature: Date (if applicable) CC: ANKLE MIN 3 VIEWS Observed: 09/08/2017 Status: F Source: CHELSEA 9:40 AM [facility] REPOSITORY [facility] Imaging Services [address] [place] [address] Ankle min 3 Views MR#: [id number] Acct: [id number] Name: TRISH RAPHAEL Rep #: [id number] : 1945 M 72 From: Alex Cevallos MD PCP: Murphy Sarmiento Status: REG CLI Study: Ankle min 3 Views Date of Exam: 09/08/17 Exam# [id number] Ordering Dr: Elvin Aguilera STUDY: X-RAY - LEFT ANKLE REASON FOR EXAM: Male, 72 years old. Postoperative evaluation. TECHNIQUE: 3 view(s) of the ankle. COMPARISON: Comparison is made with prior study dated August 04, 2014. FINDINGS: The patient is status post open reduction and internal fixation of the distal tibia and fibula utilizing screws and sideplate fixation device. There is good alignment. Normal tibiotalar articulation and ankle mortise. The mineralization of the bony structures. The visualized subtalar, talonavicular, calcaneocuboid and tarsal articulations are normal. The soft tissue structures are unremarkable. RAD/Ankle min 3 Views IMPRESSION: Status post ORIF of the distal fibula and tibia. The alignment is maintained. Electronically Signed: Alex Cevallos MD at 13:49 EDT Tel [phone], Service support , CC: NIKOS Aguilera; Murphy Sarmiento Shingle Bolt Cutter: Signed ORTHOPEDIC VISIT Observed: 08/18/2017 Status: F Source: TERRY REPORT 10:57 AM [facility] REPOSITORY [facility] Medicine [address] [place] [address] OFFICE VISIT Date of Service: 08/11/17 MR#: [id number] Acct: [id number] Name: TRISH RAPHAEL Rep #: [id number] : 1945 Provider: Hannah Mckenna DO Age/Sex: 72/M Location: [facility] Status: Signed Intake Intake Visit Reasons: LEFT ANKLE Is patient in pain?: Yes Pain scale (1-10): 4 Allergies memantine [From Namenda] Allergy (Verified 08/11/17 12:49) Unknown Penicillins Allergy (Verified 08/11/17 12:49) Unknown midazolam [From Versed] Adverse Reaction (Verified 08/11/17 12:49) nausea and cold sweat Medications Aspirin E.C. [Ecotrin] 81 mg PO DAILY@0800 06/20/17 [History Confirmed 07/19/17] Cholecalciferol (Vitamin D3) [Vitamin D3] 1,000 unit PO DAILY 06/20/17 [History Confirmed 07/19/17] Fish Oil/Dha/Epa [Fish Oil 1,200 mg Fish Oil] 1 ea PO DAILY 06/20/17 [History Confirmed 07/19/17] Lisinopril/Hydrochlorothiazide [Zestoretic 10/12.5 Tablet] 1 tab PO DAILY 06/20/17 [History Confirmed 07/19/17] Melatonin 5 mg PO QHS PRN 06/20/17 [History Confirmed 07/19/17] Memantine HCl [Namenda Xr] 28 mg PO DAILY 06/20/17 [History Confirmed 07/19/17] Simvastatin [Zocor] 40 mg PO QHS 06/20/17 [History Confirmed 07/19/17] Oxycodone HCl/Acetaminophen [Percocet 5/325] 1 - 2 tab PO Q6H PRN PRN 5 Days #60 tab 06/29/17 [Rx Confirmed 07/19/17] Hydrocodone Bitart/Apap 5-325 [Norwood 5MG-325MG] 1 - 2 tab PO Q6H PRN PRN #56 tab 07/20/17 [Rx] PFSH Surgical History History of tonsillectomy (Acute) history of skull fracture repair (Acute) Family History Father Diabetes Sister Diabetes Social History Smoking Status: Current every day smoker alcohol intake: never what type of physical activity do you participate in: none HPI LEFT ANKLE: Details: TRISH RAPHAEL is a 72 year old M here today for s/p left ankle revision ORIF dos 07/20/17. Patient states that he is doing okay but he continues to have discomfort. Patient is not taking any pain medications on a regular basis. He has been non-weightbearing at all times and wearing his cam boot. He notes his incision looks good. ROS Const Reports system reviewed and no additional complaints, except as docu Eyes Reports system reviewed and no additional complaints, except as docu ENT Reports system reviewed and no additional complaints, except as docu Card Reports system reviewed and no additional complaints, except as docu Resp Reports system reviewed and no additional complaints, except as docu GI Reports system reviewed and no additional complaints, except as docu Reports system reviewed and no additional complaints, except as docu Skin/Breast Reports system reviewed and no additional complaints, except as docu Neuro Yes system reviewed and no additional complaints, except as docu Psych Reports system reviewed and no additional complaints, except as docu Endo Reports system reviewed and no additional complaints, except as docu Ortho Exam Left Ankle Date of Surgery: 07/20/17 Skin: Yes healing, Soft Tissue Swelling and Erythema Contralateral Normal: Yes Exam: Yes Soft tissue swelling and Erythema Compartments: soft Dorsiflexion 0-20: 5 degrees Plantar Flexion 0-40: 10 degrees ROM: Yes pain with ROM Assessment AND Plan 1. Orthopedic aftercare Z47.89 Plan neg homans, no calf pain, etc. patient still told to remain nonweight bearing. patient has no obvious signs of infection but told to watch closely as high risk from smoking, dm, etc. patient aware and in agreement of plan. Patient is healing well but has swelling today, instructed to elevate and begin rom at home and progress into band exercises. Continue nwb Follow up in a month for repeat xrays or sooner if pain, swelling, numbness or associated symptoms, or concerns develop. All questions answered. Patient in agreement of plan. 2. Displaced bimalleolar fracture of left ankle S82.842A Coding Level of Care Code Global Post Op Diagnoses Orthopedic aftercare Z47.89 Displaced bimalleolar fracture of left ankle S82.842A 08/18/17 1057 <Electronically signed by Hannah Mckenna DO> Date Hannah Mckenna DO Cosigner Signature: Date (if applicable) CC: ORTHOPEDIC VISIT Observed: 08/09/2017 Status: F Source: TERRY REPORT 1:00 PM [facility] REPOSITORY [facility] Medicine [address] [place] [address] OFFICE VISIT Date of Service: 08/04/17 MR#: [id number] Acct: [id number] Name: TRISH RAPHAEL Jarred Rep #: [id number] : 1945 Provider: Hannah Mckenna DO Age/Sex: 72/M Location: [facility] Status: Signed Intake Intake Visit Reasons: LEFT ANKLE Is patient in pain?: Yes Pain scale (1-10): 4 Allergies memantine [From Namenda] Allergy (Verified 08/04/17 10:53) Unknown Penicillins Allergy (Verified 08/04/17 10:53) Unknown midazolam [From Versed] Adverse Reaction (Verified 08/04/17 10:53) nausea and cold sweat Medications Aspirin E.C. [Ecotrin] 81 mg PO DAILY@0800 06/20/17 [History Confirmed 07/19/17] Cholecalciferol (Vitamin D3) [Vitamin D3] 1,000 unit PO DAILY 06/20/17 [History Confirmed 07/19/17] Fish Oil/Dha/Epa [Fish Oil 1,200 mg Fish Oil] 1 ea PO DAILY 06/20/17 [History Confirmed 07/19/17] Lisinopril/Hydrochlorothiazide [Zestoretic 01/27.5 Tablet] 1 tab PO DAILY 06/20/17 [History Confirmed 07/19/17] Melatonin 5 mg PO QHS PRN 06/20/17 [History Confirmed 07/19/17] Memantine HCl [Namenda Xr] 28 mg PO DAILY 06/20/17 [History Confirmed 07/19/17] Simvastatin [Zocor] 40 mg PO QHS 06/20/17 [History Confirmed 07/19/17] Oxycodone HCl/Acetaminophen [Percocet 5/325] 1 - 2 tab PO Q6H PRN PRN 5 Days #60 tab 06/29/17 [Rx Confirmed 07/19/17] Hydrocodone Bitart/Apap 5-325 [Norwood 5MG-325MG] 1 - 2 tab PO Q6H PRN PRN #56 tab 07/20/17 [Rx] PFSH Surgical History History of tonsillectomy (Acute) history of skull fracture repair (Acute) Family History Father Diabetes Sister Diabetes Social History Smoking Status: Current every day smoker alcohol intake: never what type of physical activity do you participate in: none HPI LEFT ANKLE: Details: TRISH RAPHAEL is a 72 year old M here today s/p left ankle revision ORIF dos 07/20/17. Patient notes that he has pain over his medial ankle at times. His pain comes and goes. He states that he has fallen twice and hit his left ankle both times. He has been non-weightbearing at all times. Patient has not removed his splint. Denies numbness, tingling or other associated symptoms. ROS Const Reports system reviewed and no additional complaints, except as docu Eyes Reports system reviewed and no additional complaints, except as docu ENT Reports system reviewed and no additional complaints, except as docu Card Reports system reviewed and no additional complaints, except as docu Resp Reports system reviewed and no additional complaints, except as docu GI Reports system reviewed and no additional complaints, except as docu Reports system reviewed and no additional complaints, except as docu Musc Reports joint pain, Reports stiffness Skin/Breast Reports system reviewed and no additional complaints, except as docu Neuro Yes system reviewed and no additional complaints, except as docu Psych Reports system reviewed and no additional complaints, except as docu Endo Reports system reviewed and no additional complaints, except as docu Ortho Exam Left Ankle Skin: Yes healing, suture/arturo removed, Soft Tissue Swelling and Ecchymosis Contralateral Normal: Yes Exam: Yes Soft tissue swelling and Ecchymosis Dorsiflexion 0-20: 0 degrees Plantar Flexion 0-40: 0 degrees ROM: Yes pain with ROM Assessment AND Plan 1. Closed displaced bimalleolar fracture of left ankle with routine healing, subsequent encounter S86.251J Plan personally reviewed xrays which show anatomic alignment/ healing of quoc fx. instructed to remain nonweight bearing/ keep incision clean and dry- may get wet but keep as dry as possible. risk of infections, etc. X-rays were reviewed. There is alignment and placement. Instructed to keep the skin clean and dry except for a shower. He can not weight bear for another month but will place him in a boot today. Follow up in a month for repeat xrays or sooner if pain, swelling, numbness or associated symptoms, or concerns develop. All questions answered. Patient in agreement of plan. 2. Orthopedic aftercare Z47.89 Plan Detail Other Orders Orders: Coding Level of Care Code Global Post Op Diagnoses Closed displaced bimalleolar fracture of left ankle with routine healing, subsequent encounter S82.683X Encounter type: subsequent encounter Fracture healing: with routine healing Fracture type: closed Orthopedic aftercare Z47.89 08/09/17 1300 <Electronically signed by Hannah Mckenna DO> Date Hannah Mckenna DO Cosigner Signature: Date (if applicable) CC: ANKLE MIN 3 VIEWS Observed: 08/04/2017 Status: F Source: TERRY 10:54 AM [facility] Imaging Services [address] [place] [address] Ankle min 3 Views MR#: [id number] Acct: [id number] Name: TRISH RAPHAEL Rep #: [id number] : 1945 M 72 From: Saman Yeh MD PCP: Murphy Sarmiento Status: REG CLI Study: Ankle min 3 Views Date of Exam: 08/04/17 Exam# [id number] Ordering Dr: Hannah Mckenna DO STUDY: X-RAY - LEFT ANKLE REASON FOR EXAM: Postop. TECHNIQUE: 3 view(s) of the ankle. COMPARISON: Fluoroscopic images 07/20/2017. FINDINGS: There are orthopedic plates and screws transfixing distal tibial and fibular fractures in anatomical alignment and position. There is callus formation at the fibular fracture site. Normal tibiotalar articulation and ankle mortise. Normal visualized talus and calcaneus. The visualized subtalar, talonavicular, calcaneocuboid and tarsal articulations are normal. There is an overlying cast. RAD/Ankle min 3 Views IMPRESSION: Operative reduction internal fixation of distal tibial and fibular fractures in anatomical alignment and position. Electronically Signed: Saman Yeh MD at 11:38 EDT Tel , Service support , CC: Murphy Sarmiento; Hannah Mckenna DO Shingle Bolt Cutter: Signed OPERATIVE REPORT Observed: 08/03/2017 Status: F Source: [place] 11:01 AM [facility] Medical Records Department [address] [place] [address] Operative Report 07/20/17 1727 MR#: [id number] Acct: [id number] Name: TRISH RAPHAEL Rep #: [id number] : 1945 72 From: Hannah Mckenna DO PCP: Murphy Sarmiento Status: [facility] Location[place] [facility] [place] Report of Operation Date of Procedure: 07/20/17 Pre-Operative Diagnosis: right malreduction medial malleolus Post-Operative Diagnosis: same Surgery/Procedure Performed:: right medial malleolus revision orif with hook plate Type of Anesthesia:: General Anesthesiologist: Amarjit De La Rosa Replaced: see anesthesia chart Description of Procedure: Preoperative note Patient is a 72-year-old male who is status post ORIF by mouth fracture. Patient was walking on his left ankle medially postop x-rays confirmed a mild reduced medial malleolus piece and discussion was made to return to the upper operating room for revision operative fixation of his medial mall. Risks benefits and alternative surgery were discussed with patient. Risks including but not limited to blood loss, blood clot, infection, neurovascular injury, failure of procedure, need for revision surgery, loss of life, and loss of limb. Patient is aware he would like to proceed with a left ankle revision of medial malleolus ORIF. Operative note Patient seen and examined proper failure. Left leg was marked. Patient brought to the operating placed supine on the operating table. Signed, anesthesia, antibiotics were administered. The left leg was prepped and draped in usual sterile fashion with a tourniquet around his upper thigh. We marked out our incision extending his current incision and extended it by about a centimeter and half. We then elevated the segment of the leg and tourniquet was raised to a pressure of 250 torr. A timeout was performed. Then used a 15 blade to cut through the skin and then dissected down to noninvasive level of the fracture site. We then debrided out the fracture site and were able to find our previously placed screws when this was actually fractured through the posterior aspect of the distal fracture piece. These were removed in their entirety. We then attempted to reduce the piece however the bone was so fragile that any type of reduction that was direct or indirect did not lead to an adequate reduction using this for cannulated screws. We then converted to percutaneous hook plate. We placed a hook plate we plan placement of our previous 4-0 cannulated screws through the distal aunts aspect of the the plate in the superior and lateral. This brought the piece back down a little bit closer to its original pre-fracture site. We then placed 2 3.5 screws and standard technique want in the most proximal one we used a percutaneous technique. After placing all of the screws and then retightening the fluoroscopy cancellus screw we had better reduction of the fracture site. We irrigated the incision with copious amounts of sterile saline. We took numerous fluoroscopy fluoroscopic images throughout the entire case. We confirmed our placement on AP and lateral. The skin was then closed after it was irrigated With meth sterile saline and the skin was closed with deep 2-0 subcutaneous Vicryl and the skin was closed with interrupted 4-0 nylon stitches. Sterile dressings were applied and a posterior splint was applied was placed in the left lower extremity. The patient tolerated procedure well there were no complications patient was transferred to the recovery room in stable condition. Next Postoperative note Nonweightbearing left leg Hospital pharmacy has pain prescription Call with increased pain numbness tingling or other issues arise This note was generated with KIDOZ dictation software. It may contain incorrect words, spelling, and punctuation that were not noted in checking the note before signing. 08/03/17 1101 <Electronically signed by Hannah Mckenna DO> Date Hannah Mckenna DO CC: Murphy Sarmiento; Hannah Mckenna DO Signed DISCHARGE INSTRUCTION Observed: 07/20/2017 Status: F Source: [place] 5:27 PM [facility] RE[facility] Medical Records Department [address] [place] [address] Instructions for Home/Discharge Instructions 07/20/17 1727 MR#: [id number] Acct: [id number] Name: TRISH RAPHAEL Rep #: [id number] : 1945 72 From: Hannah Mckenna DO PCP: Murphy Sarmiento Status: REG SDC Discharge Diet: No Restrictions - non weight bearing left leg at all times, elevate toes above nose, call with concerns Discharge Activity: May Not Drive May shower in (days): 1 Ice area for (Minutes): 20 - Every hour while awake. Weight Bearing Status: Weight bearing as tolerated Keep extremity elevated above heart level: Operative Extremity Call your doctor if your incision/area has: Continuous Slow Oozing, Sudden Increased Bleeding, Increased Pain/ Swelling, Increased Redness, Foul Smelling Discharge Call your doctor if you observe: Fever of 101 or Higher, Coldness, Increased Pain, Numbness or Tingling, Change in Color, Calf discomfort Allergies/Adverse Reactions: Allergies memantine [From Namenda] Allergy (Verified 07/19/17 11:51) Unknown Penicillins Allergy (Verified 07/19/17 11:51) Unknown midazolam [From Versed] Adverse Reaction (Verified 07/19/17 11:51) nausea and cold sweat Medications to take at Discharge Aspirin E.C. [Ecotrin] 81 mg PO DAILY@0800 06/20/17 Cholecalciferol (Vitamin D3) [Vitamin D3] 1,000 unit PO DAILY 06/20/17 Fish Oil/Dha/Epa [Fish Oil 1,200 mg Fish Oil] 1 ea PO DAILY 06/20/17 Lisinopril/Hydrochlorothiazide [Zestoretic 10/12.5 Tablet] 1 tab PO DAILY 06/20/17 Melatonin 5 mg PO QHS PRN 06/20/17 Memantine HCl [Namenda Xr] 28 mg PO DAILY 06/20/17 Simvastatin [Zocor] 40 mg PO QHS 06/20/17 Oxycodone HCl/Acetaminophen [Percocet 5/325] 1 - 2 tablet PO Q6H PRN PRN 5 Days #60 tablet 06/29/17 Hydrocodone Bitart/Apap 5-325 [[place]wood 5MG-325MG] 1 - 2 tablet PO Q6H PRN PRN #56 tablet 07/20/17 The following prescriptions were given: Hydrocodone Bitart/Apap 5-325 [Norwood 5MG-325MG] 1 - 2 tablet PO Q6H PRN PRN #56 tablet PRN Reason: Pain Primary Care Physician: Murphy Sarmiento [Primary Care Provider] - Please Follow Up With: Hannah Mckenna DO - [phone] 07/20/17 1478 <Electronically signed by Hannah Mckenna DO> Date Hannah Mckenna DO CC: Murphy Sarmiento ANKLE 2 VIEWS Observed: 07/20/2017 Status: F Source: [place] 12:12 AM [facility] Imaging Services [address] [place] [address] Ankle 2 Views MR#: [id number] Acct: [id number] Name: TRISH RAPHAEL Rep #: [id number] : 1945 M 72 From: Frederick David MD PCP: Murphy Sarmiento Status: [facility] Study: Ankle 2 Views Date of Exam: 07/20/17 Exam# [id number] Ordering Dr: Hannah Mckenna DO STUDY: X-RAY - LEFT ANKLE REASON FOR EXAM: Male, 72 years old. Fracture TECHNIQUE: 4 view(s) of the ankle. COMPARISON: 07/12/2017 FINDINGS: Compared to prior examination, 2 screws are removed from the medial malleolus and new fixation hardware is applied. RAD/Ankle 2 Views IMPRESSION: Revision fixation at the distal tibia Electronically Signed: Frederick David MD at 21:33 EDT Tel , Service support , CC: Murphy Sarmiento; Hannah Mckenna DO Shingle Bolt Cutter: Signed ORTHOPEDIC VISIT Observed: 07/19/2017 Status: F Source: [place] REPORT 10:57 AM [facility] REPOSITORY [facility] Orthopaedics AND Sports Medicine [facility] [address] OFFICE VISIT Date of Service: 07/19/17 MR#: [id number] Acct: [id number] Name: TRISH RAPHAEL Rep #: [id number] : 1945 Provider: Hannah Mckenna DO Age/Sex: 72/M Location: [facility] Status: Signed Intake Intake Visit Reasons: LEFT ANKLE Is patient in pain?: No Allergies memantine [From Namenda] Allergy (Verified 06/28/17 10:16) Unknown Penicillins Allergy (Verified 06/28/17 10:16) Unknown midazolam [From Versed] Adverse Reaction (Verified 06/28/17 10:16) nausea and cold sweat Medications Aspirin E.C. [Ecotrin] 81 mg PO DAILY@0800 06/20/17 [History Confirmed 06/28/17] Cholecalciferol (Vitamin D3) [Vitamin D3] 1,000 unit PO DAILY 06/20/17 [History Confirmed 06/28/17] Fish Oil/Dha/Epa [Fish Oil 1,200 mg Fish Oil] 1 ea PO DAILY 06/20/17 [History Confirmed 06/28/17] Lisinopril/Hydrochlorothiazide [Zestoretic 01/27.5 Tablet] 1 tab PO DAILY 06/20/17 [History Confirmed 06/28/17] Melatonin 5 mg PO QHS PRN 06/20/17 [History Confirmed 06/28/17] Memantine HCl [Namenda Xr] 28 mg PO DAILY 06/20/17 [History Confirmed 06/28/17] Simvastatin [Zocor] 40 mg PO QHS 06/20/17 [History Confirmed 06/28/17] Oxycodone HCl/Acetaminophen [Percocet 5/325] 1 - 2 tab PO Q6H PRN PRN 5 Days #60 tab 06/29/17 [Rx] PFSH Surgical History History of tonsillectomy (Acute) history of skull fracture repair (Acute) Family History Father Diabetes Sister Diabetes Social History Smoking Status: Current every day smoker alcohol intake: never what type of physical activity do you participate in: none HPI LEFT ANKLE: Details: TRISH RAPHAEL is a 72 year old M here today for left ankle dos 06/29/17. Patient denies any current pain but his pain increases at night. He has been non weightbearing and using his kneeled walker to help ambulate. Patients DELVIN wrap has unwrapped in his sleep but he has not taken the splint off. He is able to move his toes with no pain. He denies any swelling into his toes. ROS Const Reports system reviewed and no additional complaints, except as docu Eyes Reports system reviewed and no additional complaints, except as docu ENT Reports system reviewed and no additional complaints, except as docu Card Reports system reviewed and no additional complaints, except as docu Resp Reports system reviewed and no additional complaints, except as docu GI Reports system reviewed and no additional complaints, except as docu Reports system reviewed and no additional complaints, except as docu Musc Reports joint pain, Reports joint swelling, Reports muscle weakness Skin/Breast Reports system reviewed and no additional complaints, except as docu Neuro Yes system reviewed and no additional complaints, except as docu Psych Reports system reviewed and no additional complaints, except as docu Endo Reports system reviewed and no additional complaints, except as docu Ortho Exam Left Ankle ANKLE: Patient is splinted and did not remove today Assessment AND Plan 1. Closed displaced bimalleolar fracture of left ankle with delayed healing, subsequent encounter S82.842G Plan patient was walking on his leg and displaced the piece either by walking on it postop and also fell and displaced the med mall piece at that time. X-rays were reviewed. There is displacement of the medial mal and he will need surgery to remove the screws and repair. Reviewed the pre-operative plans with the patient. Risks and benefits of the procedure were fully explained, including but not limited to infection, neurovascular injury, continued pain, arthritis, stiffness, need for further surgery, re-injury, DVT, PE, general risks of anesthesia, and loss of limb or life. The patient understands all the risks and does wish to proceed with written consent. Follow up in [] or sooner if pain, swelling, numbness or associated symptoms, or concerns develop. All questions answered. Patient in agreement of plan. Plan Detail Other Orders Orders: Coding Level of Care Code Global Post Op Diagnoses Closed displaced bimalleolar fracture of left ankle with delayed healing, subsequent encounter S82.842G Encounter type: subsequent encounter Fracture healing: with delayed healing Fracture type: closed 07/19/17 1057 <Electronically signed by Hannah Mckenna DO> Date Hannah Mckenna DO Leahjailyn Signature: Date (if applicable) CC: ANKLE MIN 3 VIEWS Observed: 07/19/2017 Status: F Source: [place] 10:27 AM [facility] Imaging Services [address] [place] [address] Ankle min 3 Views MR#: [id number] Acct: [id number] Name: TRISH RAPHAEL Rep #: [id number] : 1945 M 72 From: Saman Yeh MD PCP: Murphy Sarmiento Status: REG CLI Study: Ankle min 3 Views Date of Exam: 07/19/17 Exam# [id number] Ordering Dr: Hannah Mckenna DO STUDY: X-RAY - LEFT ANKLE REASON FOR EXAM: Fracture. TECHNIQUE: 3 view(s) of the ankle. COMPARISON: Radiographs 07/12/2017 and fluoroscopic images 06/29/2017. FINDINGS: There is orthopedic plate and screws transfixing a distal fibular fracture in anatomic alignment and position. As noted on the prior study is a prominent lucency of the transverse medial malleolar fracture with 2 adjacent orthopedic screws. Normal visualized talus and calcaneus. The visualized subtalar, talonavicular, calcaneocuboid and tarsal articulations are normal. There is an overlying cast. RAD/Ankle min 3 Views IMPRESSION: Operative reduction internal fixation of bimalleolar fracture without interval change. Electronically Signed: Saman Yeh MD at 10:44 EDT Tel , Service support , CC: Murphy Sarmiento; Hnanah Mckenna DO Shingle Bolt Cutter: Signed ORTHOPEDIC VISIT Observed: 07/15/2017 Status: F Source: [place] REPORT 12:04 PM [facility] Orthopaedics AND Sports Medicine [address] [place] [address] [address] [place] [address] OFFICE VISIT Date of Service: 07/12/17 MR#: [id number] Acct: [id number] Name: TRISH RAPHAEL Rep #: [id number] : 1945 Provider: Hannah Mckenna DO Age/Sex: 72/M Location: [facility] Status: Signed Intake Intake Visit Reasons: LEFT ANKLE Is patient in pain?: No Allergies memantine [From Namenda] Allergy (Verified 06/28/17 10:16) Unknown Penicillins Allergy (Verified 06/28/17 10:16) Unknown midazolam [From Versed] Adverse Reaction (Verified 06/28/17 10:16) nausea and cold sweat Medications Aspirin E.C. [Ecotrin] 81 mg PO DAILY@0800 06/20/17 [History Confirmed 06/28/17] Cholecalciferol (Vitamin D3) [Vitamin D3] 1,000 unit PO DAILY 06/20/17 [History Confirmed 06/28/17] Fish Oil/Dha/Epa [Fish Oil 1,200 mg Fish Oil] 1 ea PO DAILY 06/20/17 [History Confirmed 06/28/17] Lisinopril/Hydrochlorothiazide [Zestoretic 12.5 Tablet] 1 tab PO DAILY 06/20/17 [History Confirmed 06/28/17] Melatonin 5 mg PO QHS PRN 06/20/17 [History Confirmed 06/28/17] Memantine HCl [Namenda Xr] 28 mg PO DAILY 06/20/17 [History Confirmed 06/28/17] Simvastatin [Zocor] 40 mg PO QHS 06/20/17 [History Confirmed 06/28/17] Oxycodone HCl/Acetaminophen [Percocet 5/325] 1 - 2 tab PO Q6H PRN PRN 5 Days #60 tab 06/29/17 [Rx] PFSH Surgical History History of tonsillectomy (Acute) history of skull fracture repair (Acute) Family History Father Diabetes Sister Diabetes Social History Smoking Status: Current every day smoker alcohol intake: never what type of physical activity do you participate in: none HPI LEFT ANKLE: Details: TRISH RAPHAEL is a 72 year old M here today for a post op visit. Surgery was 06-29-17. Patient has no complaints of nausea, vomiting, or fever. Patient states he doesn't have pain, but his ankle is uncomfortable. Patient has been ambulating on his postoperative foot. Patient states he got the spint wet today when the bag leaks while he was taking a shower. Assessment AND Plan 1. Orthopedic aftercare Z47.89 Plan Personally reviewed the surgical images if available, the surgery procedure and reviewed the post op care instructions. Monitor for signs of infection, redness, warmth, swelling in excess, drainage, opening of incision site/sites, and/or fever. Explained he is supposed to be NWB, we will him in a boot due to the dampness of his skin today. Expressed the importance of remaining nwb at all times to reduce his risk of infection and failure. Follow up in a week for casting or sooner if pain, swelling, numbness or associated symptoms, or concerns develop. All questions answered. Patient in agreement of plan. Plan Detail Other Orders Orders: Coding Level of Care Code Global Post Op Diagnoses Orthopedic aftercare Z47.89 07/15/17 1204 <Electronically signed by Hannah Mckenna DO> Date Hannah Mckenna DO Cosigner Signature: Date (if applicable) CC: ANKLE MIN 3 VIEWS Observed: 07/12/2017 Status: F Source: [place] 10:02 AM [facility] Imaging Services [address] [place] [address] Ankle min 3 Views MR#: [id number] Acct: [id number] Name: TRISH RAPHAEL Rep #: [id number] : 1945 M 72 From: Frederick David MD PCP: Murphy Sarmiento Status: REG CLI Study: Ankle min 3 Views Date of Exam: 07/12/17 Exam# [id number] Ordering Dr: Hannah Mckenna DO STUDY: X-RAY - LEFT ANKLE REASON FOR EXAM: Male, 72 years old. Fracture TECHNIQUE: 3 view(s) of the ankle. COMPARISON: 06/29/2017 FINDINGS: There is fixation of the medial and lateral malleolus. There are surgical arturo at the medial soft tissues. Posterior splint is applied. There is prominent lucency at the transverse medial malleolar fracture site. Normal visualized talus and calcaneus. The visualized subtalar, talonavicular, calcaneocuboid and tarsal articulations are normal. The soft tissue structures are unremarkable. RAD/Ankle min 3 Views IMPRESSION: ORIF, medial, lateral malleolus Electronically Signed: Frederick David MD at 22:01 EDT Tel , Service support , CC: Murphy Sarmiento; Hannah Mckenna DO Shingle Bolt Cutter: Signed OPERATIVE REPORT Observed: 07/06/2017 Status: F Source: [place] 1:43 PM [facility] Medical Records Department [address] [place] [address] Operative Report 06/29/17 1043 MR#: [id number] Acct: [id number] Name: TRISH RAPHAEL Jarred Rep #: [id number] : 1945 72 From: Hannah Mckenna DO PCP: Murphy Sarmiento MD Status: [facility] Location[place] [facility] [place] Report of Operation Date of Procedure: 06/29/17 Pre-Operative Diagnosis: left bimalleolus ankle fracture Post-Operative Diagnosis: same Surgery/Procedure Performed:: ORIF left ankle Type of Anesthesia:: General Anesthesiologist: Jairo Lawson Estimated Blood Loss (mL): none Fluids Replaced: 1700 ml lr Description of Procedure: Preoperative note Patient is a 72-year-old male who fell and twisted his left ankle. He was seen in the office and noted to have a by mall displaced ankle fracture. Wrist benefits alternatives surgery discussed with patient. Patient was noncompliant with ambulating on his leg he also taken a splint down was walking in a Cam boot. We discussed the risks associated with walking on his cam boot and not following instructions. Knowledge and stated he will not weight-bear on his ankle after surgery. Risks benefits and alternatives surgery discussed with patient. Risks including but not limited to blood loss, blood clot, infection, neurovascular injury, failure procedure, loss of life and loss of limb. Patient is aware like proceed with left ankle open reduction internal fixation repair is indicated. Discussed with patient concerns from infection and postop failure of fixation d/t noncompliance and diabetes, etc. patient aware. if has increased pain or redness to call us with questions/concerns for repeat evaluation as high risk d/t medical comorbidities. patient aware and in agreement of plan. Operative note Patient seen and examined preoperative holding area. Left ankle is marked. Patient is brought to the operating room and placed supine on the operating room table. Signing, anesthesia, antibiotics were administered. Left leg was prepped and draped in usual sterile fashion with a tourniquet around his upper thigh. Bony prominences well- padded SCDs placed on his contralateral limb the patient was bump was placed over under the patient's left hip. We then marked out our incision for lateral malleolus leg was elevated exsanguinated and tourniquet was raised her pressure of 300 torr. We then performed our timeout. We then used a 15 blade cut the skin dissected down times the level of the fracture site. There is abundant callus around the fracture was shortened. We use a combination of a dental pick and a curette to clear out the fracture site. We then decide use a posterior antiglide plate fixation in order to reduce the fracture to the bone. His bone was quite brittle and osteopenic. We pre-bent the 6 hole one third tubular plate. Placed on the posterior aspect just proximal to the fracture site was very told her first screw hole. Ensure that we had good action at the fracture site and use indirect reduction techniques in order to receive her reduction and then maintain it with an placement of our first screw which was a 3.5 mm cortical screw just proximal to the level of the fracture proximally. We then placed another screw distally and the cancellus screw did not show that we had good alignment in the lateral plane which we did have. We placed the appropriate met appropriately drilled and measured cancellus screw in the distal fibula. We then placed a more proximal screw in order to gain dictation proximally another 3.5 which is measured appropriately in place. We placed a lag screw from distal to proximal across the fracture site. This is a 22 mm 3.5 cortical screw. We had good reduction of the fracture site at that point we did irrigate with copious amounts of sterile saline. Then moved to the medial malleolus. We made a curvilinear incision over the tip of the medial malleolus. We light and dissect down with tenotomy syllable of the fracture site which was debrided. We then used to guidewires across the fracture site ensuring that we were not in the joint and anterior and lateral planes. We then measured and placed 244 partially- threaded 4 oh cancellus screws. We inserted both AP and lateral planes good reduction of the fracture site and good placement of our screws which we did have. We irrigated the incision with copious amounts sterile saline. The incisions were closed with deep 2-0 Vicryl and nylon on the lateral malleoli and arturo on the medial mall cutaneous closure. Sterile dressings were applied and a splint was applied. The tourniquet was deflated for total working time of 80 minutes. The patient was transferred to recovery room in stable condition. Patient tolerated the procedure well there were no complications. Please note that patient received a preoperative spinal block. Next Postoperative note Nonweightbearing left leg Crutches at all times or wheelchair Follow-up in 2 weeks Pharmacy has prescription for pain Call with concerns This note was generated with KIDOZ dictation software. It may contain incorrect words, spelling, and punctuation that were not noted in checking the note before signing. 07/06/17 5142 <Electronically signed by Hannah Mckenna DO> Date Hannah Mckenna DO CC: Murphy Sarmiento; Hannah Mckenna DO; Murphy Sarmiento MD Signed 12 LEAD ELECTROCARDIOGRAM Observed: 07/01/2017 Status: F Source: TERRY 2:11 PM [facility] REPOSITORY [facility] Cardiovascular Services [address] [place] [address] 12 Lead EKG 06/29/17 0705 MR#: [id number] Acct: [id number] Name: TRISH RAPHAEL Rep #: [id number] : 1945 72 From: Milind Charles MD Attending Dr: Hannah Mckenna DO Status: DEP SDC Ordering Dr: Amarjit De La Rosa MD Date: 06/29/17 Location[place] [facility] [place] [facility] [place] Sex: M C Admitted: Test Reason : PRE-OP' Blood Pressure : / mmHG Vent. Rate : 091 BPM Atrial Rate : 091 BPM P-R Int : 152 ms QRS Dur : 080 ms QT Int : 362 ms P-R-T Axes : 057 057 055 degrees QTc Int : 445 ms Normal sinus rhythm Normal ECG No previous ECGs available Confirmed by ARACELI CORDERO, MILIND ([id number]), electronic news gathering editor SANDRA FAIR ([id number]) on 07/01/2017 2:11:12 PM Referred By: Hannah Mckenna Confirmed By:MILIND CHARLES MD 07/01/17 1411 Date Milind Charles MD CC: Murphy Sarmiento; Amarjit De La Rosa MD; Murphy Sarmiento MD Signed ORTHOPEDIC VISIT Observed: 06/30/2017 Status: F Source: TERRY REPORT 9:23 AM [facility] REPOSITORY [facility] Orthopaedics AND Sports Medicine [address] [place] [address] OFFICE VISIT Date of Service: 06/28/17 MR#: [id number] Acct: [id number] Name: TRISH RAPHAEL Rep #: [id number] : 1945 Provider: Hannah Mckenna DO Age/Sex: 72/M Location: [facility] [place] Status: Signed with Addenda ADDENDUM by Hannah Mckenna DO on 06/30/17 at 0923 Addendum entered and electronically signed by Hannah Mckenna DO 06/30/17 09:23: Please note the last paragraph in his assessment and plan from C file to explained was erroneous dragon input. 06/30/17922 <Electronically signed by Hannah Mckenna DO> Date Hannah Mckenna DO cc: * Signed Intake Intake Visit Reasons: LEFT ANKLE Is patient in pain?: No Allergies memantine [From Namenda] Allergy (Verified 06/28/17 10:16) Unknown Penicillins Allergy (Verified 06/28/17 10:16) Unknown midazolam [From Versed] Adverse Reaction (Verified 06/28/17 10:16) nausea and cold sweat Medications Aspirin E.C. [Ecotrin] 81 mg PO DAILY@0800 06/20/17 [History Confirmed 06/28/17] Cholecalciferol (Vitamin D3) [Vitamin D3] 1,000 unit PO DAILY 06/20/17 [History Confirmed 06/28/17] Fish Oil/Dha/Epa [Fish Oil 1,200 mg Fish Oil] 1 ea PO DAILY 06/20/17 [History Confirmed 06/28/17] Lisinopril/Hydrochlorothiazide [Zestoretic 10/12.5 Tablet] 1 tab PO DAILY 06/20/17 [History Confirmed 06/28/17] Melatonin 5 mg PO QHS PRN 06/20/17 [History Confirmed 06/28/17] Memantine HCl [Namenda Xr] 28 mg PO DAILY 06/20/17 [History Confirmed 06/28/17] Simvastatin [Zocor] 40 mg PO QHS 06/20/17 [History Confirmed 06/28/17] PFSH Social History Smoking Status: Current every day smoker HPI LEFT ANKLE: Details: TRISH RAPHAEL is a 72 year old M here today for left ankle fracture. He has had some pressure in lateral ankle. He states he has put his foot in a bucket of ice. He continues to have swelling laterally and medially of ankle but has decreased. No tingling/numbness. He has having issues with his splint so it was removed and he was given a tall CAM boot. He presents with crutches and wheelchair today. ROS Const Reports system reviewed and no additional complaints, except as docu Eyes Reports system reviewed and no additional complaints, except as docu ENT Reports system reviewed and no additional complaints, except as docu Card Reports system reviewed and no additional complaints, except as docu Resp Reports system reviewed and no additional complaints, except as docu GI Reports system reviewed and no additional complaints, except as docu Reports system reviewed and no additional complaints, except as docu Musc Reports joint swelling Skin/Breast Reports system reviewed and no additional complaints, except as docu Neuro Yes system reviewed and no additional complaints, except as docu Psych Reports system reviewed and no additional complaints, except as docu Endo Reports system reviewed and no additional complaints, except as docu Sathish/Lymph Reports system reviewed and no additional complaints, except as docu Aller/Immun Reports system reviewed and no additional complaints, except as docu Ortho Exam Left Ankle Skin: Yes Ecchymosis and Soft Tissue Swelling Exam: Yes Ecchymosis and Soft tissue swelling ROM: Yes crepitus with ROM and pain with ROM (Minimal pain secondary to diabetic neuropathy, positive wrinkle sign, neg homans sign) Assessment AND Plan Problems 1. Closed bimalleolar fracture of left ankle S82.202A Plan Patient seen today with his friend chiropractic doctor who brought patient in after patient had taken off of his splint in order that he could ice it more efficiently and he actually put into a 5 gallon bucket for ice. He comes in today with nothing on his left ankle except for he had in a cam boot that his friend gave him. The cam boot is about 4 sizes too large he has placed a T-shirt into the boot in order to provide some stabilization at the distal toe. Patient has no pain today but however he has no pain ever because he has been walking on this he has diabetic neuropathy. He has positive wrinkle signs he is good to go for surgery tomorrow. Discussed the risks of him walking on including arthritis patient has been elevating it and icing it as much as possible. Give patient soap for cleansing the ankle as he has no splint on it at this point We will see patient tomorrow for surgical intervention of his left ankle. This note was generated with KIDOZ dictation software. It may contain incorrect words, spelling, and punctuation that were not noted in checking the note before signing. C file I feel she is term by massage she does feel that she has pain now is going well weakness when she has the only complaint in the context of 2-30 I do she is very pleased to see if we can get her in here and she is in room 6 If He Wants to Wait he does not need so I do not know ultrasound of her right Greatis is in the context of she go ahead and there is a 30 sure she was and that was this thank you so muchsurgery like she in the context of to go his office to his insurance is anything like there is no like injections or anything of a have to do or not do perfect thank you so much but I appreciate you during I have initiated do this at any point in time he is for the morning and 1 month 1 week 1 week Left carpal tunnel but when she noticed a diagnosis she she is the 1 surgery this Tuesday insurance appreciated in the meantime should she note no in the context of a return call all his last patient in clinic at 1015 he could be 3011 health 1015 at 1045 11 would be 1 okay okay this time Patient Really Should Be put everything earlier having surgery on a explained Coding Level of Care Code Off vis,est,level 3 Diagnoses Closed bimalleolar fracture of left ankle S82.842A 06/28/17 1219 <Electronically signed by Hannah Mckenna DO> Date Hannah Lemusignjaime Signature: Date (if applicable) CC: DISCHARGE INSTRUCTION Observed: 06/29/2017 Status: F Source: TERRY 10:43 AM [facility] REPOSITORY [facility] Medical Records Department [address] [place] [address] Instructions for Home/Discharge Instructions 06/29/17 1040 MR#: [id number] Acct: [id number] Name: TRISH RAPHAEL Rep #: [id number] : 1945 72 From: Hannah Mckenna DO PCP: Murphy Sarmiento MD Status: REG SDC Discharge Diet: No Restrictions - non weight bearing left leg, keep splint on at all times, follow up in 2 weeks in office, call with concerns, elevate leg above heart Discharge Activity: May Not Drive May shower in (days): 1 Ice area for (Minutes): 20 - Every hour while awake. Weight Bearing Status: Weight bearing as tolerated Keep extremity elevated above heart level: Operative Extremity Call your doctor if your incision/area has: Continuous Slow Oozing, Sudden Increased Bleeding, Increased Pain/ Swelling, Increased Redness, Foul Smelling Discharge Call your doctor if you observe: Fever of 101 or Higher, Coldness, Increased Pain, Numbness or Tingling, Change in Color, Calf discomfort Allergies/Adverse Reactions: Allergies memantine [From Namenda] Allergy (Verified 06/28/17 10:16) Unknown Penicillins Allergy (Verified 06/28/17 10:16) Unknown midazolam [From Versed] Adverse Reaction (Verified 06/28/17 10:16) nausea and cold sweat Medications to take at Discharge Aspirin E.C. [Ecotrin] 81 mg PO DAILY@0800 06/20/17 Cholecalciferol (Vitamin D3) [Vitamin D3] 1,000 unit PO DAILY 06/20/17 Fish Oil/Dha/Epa [Fish Oil 1,200 mg Fish Oil] 1 ea PO DAILY 06/20/17 Lisinopril/Hydrochlorothiazide [Zestoretic 01/27.5 Tablet] 1 tab PO DAILY 06/20/17 Melatonin 5 mg PO QHS PRN 06/20/17 Memantine HCl [Namenda Xr] 28 mg PO DAILY 06/20/17 Simvastatin [Zocor] 40 mg PO QHS 06/20/17 Oxycodone HCl/Acetaminophen [Percocet 5/325] 1 - 2 tablet PO Q6H PRN PRN 5 Days #60 tablet 06/29/17 The following prescriptions were given: Oxycodone HCl/Acetaminophen [Percocet 5/325] 1 - 2 tablet PO Q6H PRN PRN 5 Days #60 tablet PRN Reason: Pain Primary Care Physician: Murphy Sarmiento MD [Primary Care Provider] - Please Follow Up With: Hannah MckennaDO - [phone] 06/29/17 1043 <Electronically signed by Hannah Mckenna DO> Date Hannah Mckenna DO CC: Murphy Sarmiento; Murphy Sarmiento MD CBC-COMPLETE BLOOD CNT Collected: 06/29/2017 Status: F Source: TERRY NO DIFF 6:45 AM [facility] REPOSITORY TYPE CODE TESTS RESULT OUT OF RANGE REFERENCE UNITS LAB L100.1000 4.4-11.0 K/mm3 Normal WBC 7.9 LAB L100.1200 4.6-6.2 M/mm3 Low RBC 3.86 LAB L100.1300 13.0-16.5 g/dl Low HGB 11.7 LAB L100.1400 40-54 % Low HCT 35.4 LAB L100.1500 80-94 fL Normal MCV 91.7 LAB L100.1600 27.0-32.0 pg Normal MCH 30.3 LAB L100.1700 32-36 g/gl Normal MCHC 33.1 LAB L100.1810 11.6-14.6 % Normal RDW CV 14.0 LAB L100.1820 35.1-43.9 fl High RDW SD 46.8 LAB L100.1900 150-450 K/mm3 Normal PLT 449 LAB L100.2000 6.2-12.0 fl Normal MPV 9.0 Performed By: #### L100.0500 #### [facility] [address] [place], [address] BASIC METABOLIC Collected: 06/29/2017 Status: F Source: ETRRY PROFILE (BMP) 6:45 AM [facility] REPOSITORY TYPE CODE TESTS RESULT OUT OF RANGE REFERENCE UNITS LAB L501.0100 74-106 mg/dL Normal GLU 93 Result Comment: Please note revised GLUCOSE reference range effective 2017. LAB L501.1000 7-18 mg/dL High BUN 26 LAB L501.1100 0.70-1.30 mg/dL Normal CREAT,SERUM 1.11 Result Comment: The validity of the calculated GFR AND GFRAA in patients over 70 years has not been determined. Clinical correlation is essential. LAB L501.1110 >60 mL/min Normal EST GFR 69 Result Comment: Non- GFR Calc LAB L501.1115 >60 mL/min Normal EST GFR - AA 83 Result Comment: GFR Calc LAB L501.1255 ml/min Normal Estimated CRCL 54.59 LAB L501.1300 10-20 RATIO High BUN/CRE 23.4 LAB L501.2200 8.5-10 mg/dL Normal .1 CA 9.1 LAB L501.5300 136-14 mmol/L Normal 5 NA 136 LAB L501.5600 3.5-5. mmol/L Normal 1 K 4.1 LAB L501.5900 98-107 mmol/L Normal CL 103 LAB L501.6100 21.0-3 mmol/L Normal 2.0 CO2 26.0 LAB L501.6200 5-15 Normal GAP 7 Performed By: #### L500.2500 #### [facility] [address] [place], [address] ANKLE MIN 3 VIEWS Observed: 06/29/2017 Status: F Source: CHELSEA 5:08 AM [facility] REPOSITORY [facility] Imaging Services [address] [place] [address] Ankle min 3 Views MR#: [id number] Acct: [id number] Name: TRISH RAPHAEL Jarred Rep #: [id number] : 1945 M 72 From: Saman Yeh MD PCP: Murphy Sarmiento MD Status: REG [facility] [place] Study: Ankle min 3 Views Date of Exam: 06/29/17 Exam# [id number] Ordering Dr: Hannah Mckenna DO STUDY: X-RAY - LEFT ANKLE REASON FOR EXAM: Fracture repair. TECHNIQUE: 2 fluoroscopic view(s) of the ankle. COMPARISON: Radiographs 06/14/2017. FINDINGS: There is an orthopedic plate and screws transfixing a distal fibular fracture in anatomic alignment and position with overlying sponge. There are 2 orthopedic screws in the medial malleolus transfixing a fracture in anatomic alignment and position. Electronically Signed: Saman Yeh MD at 10:41 EDT Tel , Service support , RAD/Ankle min 3 Views CC: Hannah Mckenna DO; Murphy Sarmiento MD Shingle Bolt Cutter: Signed ORTHOPEDIC VISIT Observed: 06/23/2017 Status: F Source: TERRY REPORT 4:30 PM [facility] REPOSITORY [facility] Orthopaedics AND Sports Medicine [address] [place] [address] [address] [place] [address] OFFICE VISIT Date of Service: 06/16/17 MR#: [id number] Acct: [id number] Name: TRISH RAPHAEL Rep #: [id number] : 1945 Provider: Hannah Mckenna DO Age/Sex: 72/M Location: [facility] Status: Signed with Addenda ADDENDUM by Hannah Mckenna DO on 06/23/17 at 1630 Addendum entered and electronically signed by Hannah Mckenna DO 06/23/17 16:30: patient instructed to raise/elevate toes above nose as much as possible and to remain non weight bearing on the leg and we will recheck for swelling in one week to ensure that he is ok for surgery tuesday. 06/23/17 1630 <Electronically signed by Hannah Mckenna DO> Date Hannah Mckenna DO cc: * Signed Intake Intake Visit Reasons: LEFT ANKLE Allergies memantine [From Namenda] Allergy (Verified 06/21/17 10:48) Unknown Penicillins Allergy (Verified 06/21/17 10:48) Unknown midazolam [From Versed] Adverse Reaction (Verified 06/21/17 10:48) nausea and cold sweat Medications Aspirin E.C. [Ecotrin] 81 mg PO DAILY@0800 06/20/17 [History Confirmed 06/21/17] Cholecalciferol (Vitamin D3) [Vitamin D3] 1,000 unit PO DAILY 06/20/17 [History Confirmed 06/21/17] Fish Oil/Dha/Epa [Fish Oil 1,200 mg Fish Oil] 1 ea PO DAILY 06/20/17 [History Confirmed 06/21/17] Lisinopril/Hydrochlorothiazide [Zestoretic 10/12.5 Tablet] 1 tab PO DAILY 06/20/17 [History Confirmed 06/21/17] Melatonin 5 mg PO QHS PRN 06/20/17 [History Confirmed 06/21/17] Memantine HCl [Namenda Xr] 28 mg PO DAILY 06/20/17 [History Confirmed 06/21/17] Simvastatin [Zocor] 40 mg PO QHS 06/20/17 [History Confirmed 06/21/17] PFSH Social History Smoking Status: Current every day smoker HPI LEFT ANKLE: Details: TRISH RAPHAEL is a 72 year old M here today for left ankle. Patient notes that he fell asleep while standing and is unsure of an exact mechanism. Patient went to the ED where he had xrays which showed a fracture. Patient was placed into a splint which he has not removed. Denies numbness, tingling or other associated symptoms. Patient is able to move his toes without pain. ROS Const Reports system reviewed and no additional complaints, except as docu Eyes Reports system reviewed and no additional complaints, except as docu ENT Reports system reviewed and no additional complaints, except as docu Card Reports system reviewed and no additional complaints, except as docu Resp Reports system reviewed and no additional complaints, except as docu GI Reports system reviewed and no additional complaints, except as docu Reports system reviewed and no additional complaints, except as docu Musc Reports joint pain Skin/Breast Reports system reviewed and no additional complaints, except as docu Neuro Yes system reviewed and no additional complaints, except as docu Psych Reports system reviewed and no additional complaints, except as docu Endo Reports system reviewed and no additional complaints, except as docu Ortho Exam Left Ankle Date of injury: 06/14/17 Skin: Yes Ecchymosis and Soft Tissue Swelling Contralateral Normal: Yes Exam: Yes Ecchymosis and Soft tissue swelling Dorsiflexion 0-20: 0 degrees Plantar Flexion 0-40: 0 degrees ROM: Yes pain with ROM Sensation: Deep Peroneal Nerve: I, Superficial Peroneal Nerve: I, Tibial Nerve: I, Sural Nerve: I, Saphenous Nerve: I ANKLE: patient is splinted and nwb Assessment AND Plan 1. Closed bimalleolar fracture of left ankle, initial encounter S81.773F Plan Personally reviewed the patient's medical history, medications, surgeries and recent exams if available. Reviewed the xrays from the ED. Explained that he needs to have surgical repair for the tibia and fibula fractures, he is at risk of OA and stiffness. Reviewed the pre-operative plans with the patient. Risks and benefits of the procedure were fully explained, including but not limited to infection, neurovascular injury, continued pain, arthritis, stiffness, need for further surgery, re-injury, DVT, PE, general risks of anesthesia, and loss of limb or life. The patient understands all the risks and does wish to proceed with written consent. We will have him come back on for a skin and swelling check, instructed to elevate as much as possible until Tuesday. Follow up next week or sooner if pain, swelling, numbness or associated symptoms, or concerns develop. All questions answered. Patient in agreement of plan. Coding Level of Care Code Off vis,new,level 3 Diagnoses Closed bimalleolar fracture of left ankle, initial encounter S82.649E Encounter type: initial encounter 06/23/17 1629 <Electronically signed by Hannah Mckenna DO> Date Hannah Mckenna DO Cosigner Signature: Date (if applicable) CC: ORTHOPEDIC VISIT Observed: 06/21/2017 Status: F Source: TERRY REPORT 3:07 PM [facility] REPOSITORY [facility] Orthopaedics AND Sports Medicine [address] [place] [address] OFFICE VISIT Date of Service: 06/21/17 MR#: [id number] Acct: [id number] Name: TRISH RAPHAEL Rep #: [id number] : 1945 Provider: Hannah Mckenna DO Age/Sex: 72/M Location: [facility] Status: Signed Intake Intake Visit Reasons: LEFT ANKLE Is patient in pain?: No Allergies memantine [From Namenda] Allergy (Verified 06/21/17 10:48) Unknown Penicillins Allergy (Verified 06/21/17 10:48) Unknown midazolam [From Versed] Adverse Reaction (Verified 06/21/17 10:48) nausea and cold sweat Medications Aspirin E.C. [Ecotrin] 81 mg PO DAILY@0800 06/20/17 [History Confirmed 06/21/17] Cholecalciferol (Vitamin D3) [Vitamin D3] 1,000 unit PO DAILY 06/20/17 [History Confirmed 06/21/17] Fish Oil/Dha/Epa [Fish Oil 1,200 mg Fish Oil] 1 ea PO DAILY 06/20/17 [History Confirmed 06/21/17] Lisinopril/Hydrochlorothiazide [Zestoretic 01/27.5 Tablet] 1 tab PO DAILY 06/20/17 [History Confirmed 06/21/17] Melatonin 5 mg PO QHS PRN 06/20/17 [History Confirmed 06/21/17] Memantine HCl [Namenda Xr] 28 mg PO DAILY 06/20/17 [History Confirmed 06/21/17] Simvastatin [Zocor] 40 mg PO QHS 06/20/17 [History Confirmed 06/21/17] PFSH Social History Smoking Status: Current every day smoker HPI LEFT ANKLE: Details: TRISH RAPHAEL is a 72 year old M here today for left ankle fracture. Overall he denies having any pain unless he steps on it the wrong way. No tingling/numbness. He does continue to have splint and ambulate with crutches. His splint started to fall off so he tapped it around the bottom. He does have a sore at posterior knee due to the splint rubbing. ROS Const Reports system reviewed and no additional complaints, except as docu Eyes Reports system reviewed and no additional complaints, except as docu ENT Reports system reviewed and no additional complaints, except as docu Card Reports system reviewed and no additional complaints, except as docu Resp Reports system reviewed and no additional complaints, except as docu GI Reports system reviewed and no additional complaints, except as docu Reports system reviewed and no additional complaints, except as docu Musc Reports system reviewed and no additional complaints, except as docu Skin/Breast Reports system reviewed and no additional complaints, except as docu Neuro Yes system reviewed and no additional complaints, except as docu Psych Reports system reviewed and no additional complaints, except as docu Endo Reports system reviewed and no additional complaints, except as docu Aller/Immun Reports system reviewed and no additional complaints, except as docu Assessment AND Plan 1. Closed bimalleolar fracture of left ankle with routine healing, subsequent encounter S82.908H Plan discussed nonambulating and elevating leg above heart and seems like he is inconsistent in doing so and noncompliant with all of our discussion per last week. discussed risks of infection, malalignment, ostearthritis, continued pain and failure of procedure if patient is noncompliant. . All questions answered. Patient in agreement of plan. follow up in one week for repeat clinical eval check. Removed the splint and padding for skin check, he has minimal wrinkle sign today. Explained that we will postpone his surgery for next week. He needs to keep the ankle elevated and decrease his smoking Follow up in a week for skin check or sooner if pain, swelling, numbness or associated symptoms, or concerns develop. All questions answered. Patient in agreement of plan. Coding Level of Care Code Off vis,est,level 3 Diagnoses Closed bimalleolar fracture of left ankle with routine healing, subsequent encounter S82.969T Encounter type: subsequent encounter Fracture healing: with routine healing 06/21/17 1507 <Electronically signed by Hannah Mckenna DO> Date Hannah Pena Signature: Date (if applicable) CC: EMERGENCY DEPARTMENT Observed: 06/14/2017 Status: F Source: [place]HEL[place] SUMMARY 4:35 PM [facility] REPOSITORY [facility] Medical Records Department [address] [place] [address] Emergency Department Summary 06/14/17 1616 MR#: [id number] Acct: [id number] Name: TRISH RAPHAEL Rep #: [id number] : 1945 72 From: Ruben Jain MD PCP: Rodrigue Physician, No Primary Status: REG ER - ER Visit Summary Date of Service: 06/14/17 Chief Complaint: Ankle injury History of Present Illness: The patient is a 72 M who injured his left ankle yesterday. He felt tired and actually fell asleep when he was standing. This happens to him from time to time. During the fall, he woke up but could not catch himself. He fell and twisted his left ankle. Denies any other injuries or complaints. He does fall asleep from time to time and does not want to be evaluated for this. Physical Examination: Vital signs unremarkable. Head and neck atraumatic. Heart regular. Lungs clear. Abdomen soft. Left ankle is diffusely swollen and tender bilaterally. The right ankle is atraumatic. Foot is nontender. Proximal tib/fib nontender. Knee and the remainder of his left leg unremarkable. Pulses and sensation intact. Skin intact. Test Results: X-ray shows bimalleolar fracture. Emergency Department Course and Treatment: Patient was treated with Tylenol. Pain was under control. I discussed the findings with Dr. Nye. Patient has used crutches before and feels comfortable with crutches. He said he can be careful and will not fall asleep. Splint was placed. Patient was neurovascularly intact afterwards. Precautions were discussed. He will follow-up as an outpatient with orthopedics. Rest, ice, elevate. Short course of [place]. Wiggle toes intermittently. Return if worse. Elevation was stressed again. Treatment Plan: As above Disposition: Discharged Impression: 1. Left bimalleolar fracture This note was generated with KIDOZ dictation software. It may contain incorrect words, spelling, and punctuation that were not noted in review of the chart prior to signing ED Disposition - Plan for ED Patient: Chief Complaint: Lower Extremity Injury Referrals: Care Physician,No Primary [Primary Care Provider] - What to do if you have Problems For any increased pain, shortness of breath, bleeding, nausea or vomiting, chest pain, or any unexpected problems, contact your Primary Care Provider. Call [facility] ([phone]) or report to the closest Emergency Room. Call 911 if necessary. 06/14/171634 <Electronically signed by Ruben Jain MD> Date Ruben Jain MD Cosigner Signature (If Indicated): Date ____ CC: No Primary Care Physician DISCHARGE INSTRUCTION Observed: 06/14/2017 Status: F Source: [place] 4:35 PM [facility] REPOSITORY [facility] Medical Records Department [address] [place] [address] Discharge Instruction 06/14/171617 MR#: [id number] Acct: [id number] Name: IJEOMATRISH Jarred Rep #: [id number] : 1945 72 From: Ruben Jain MD PCP: Care Physician, No Primary Status: REG ER ED Disposition - Plan for ED Patient: Chief Complaint: Lower Extremity Injury Instructions: ED Fx Ankle General Prescriptions: Hydrocodone Bitart/Apap 5-325 [Norwood 5/325] 1 tab PO Q6H PRN PRN 3 Days #10 tab PRN Reason: Pain Referrals: Hannah Mckenna DO [STAFF PHYSICIAN] - What to do if you have Problems For any increased pain, shortness of breath, bleeding, nausea or vomiting, chest pain, or any unexpected problems, contact your Primary Care Provider. Call [facility] ([phone]) or report to the closest Emergency Room. Call 911 if necessary. 06/14/171634 <Electronically signed by Ruben Jain MD> Date Ruben Jain MD Cosigner Signature (If Indicated): Date CC: No Primary Care Physician ANKLE MIN 3 VIEWS Observed: 06/14/2017 Status: F Source: TERRY 2:23 PM [facility] REPOSITORY [facility] Imaging Services [address] [place] [address] Ankle min 3 Views MR#: [id number] Acct: [id number] Name: TRISH RAPHAEL Rep #: [id number] : 1945 M 72 From: Alex Cevallos MD PCP: Care Physician, No Primary Status: REG ER Study: Ankle min 3 Views Date of Exam: 06/14/17 Exam# [id number] Ordering Dr: Ruben Jain MD STUDY: X-RAY - LEFT ANKLE REASON FOR EXAM: Male, 72 years old. Pain following a fall. TECHNIQUE: 3 view(s) of the ankle. COMPARISON: None. FINDINGS: Normal visualized distal tibia and fibula. Nondisplaced avulsion fracture of the medial malleolus. Nondisplaced oblique fracture of the lateral malleolus. Normal tibiotalar articulation and ankle mortise. Normal visualized talus and calcaneus. The visualized subtalar, talonavicular, calcaneocuboid and tarsal articulations are normal. Diffuse soft tissue swelling. RAD/Ankle min 3 Views IMPRESSION: Nondisplaced avulsion fracture of the medial malleolus as well as oblique fracture of the lateral malleolus with diffuse soft tissue swelling. Electronically Signed: Alex Cevallos MD at 15:18 EST Tel [phone], Service support , CC: No Primary Care Physician; Ruben Jain MD Shingle Bolt Cutter: Signed ALLERGIES ALLERGIES DATE TYPE / CODE NAME / CODE REACTION SEVERITY SOURCE 03/30/2018 Drug Penicillins/ Unknown Unknown [place] [facility] Allergy/4160 [id number]([facility] 55560(SNOMED XNORM) Repository CT) 03/30/2018 Drug midazolam/F0 nausea and cold Unknown [place] [facility] Allergy/4160 [id number](RXN [facility] 79056(SNOMED ORM) Repository CT) 03/30/2018 Drug memantine/F0 Unknown Unknown [place] [facility] Allergy/4160 [id number]([facility] 28072(SNOMED ORM) Repository CT) ENCOUNTERS ENCOUNTERS ADMIT/DISCHARGE ACCOUNT ADMITTING ENCOUNTER LOCATION SOURCE NUMBER CLASS 03/30/2018 [id number] Ambulatory [place] 3 [facility] Hospital ing:HPRAD Repository 03/30/2018/ [id number] Ambulatory BMSBuilding:B [place] 8 0 [facility] Repository 02/21/2018 [id number] Ambulatory [place] 6 [facility] Hospital ing:LAB Repository 12/29/2017 [id number] Ambulatory [place] 8 [facility] Hospital ing:HPRAD Repository 12/29/2017/ [id number] Ambulatory BMSBuilding:B [place] 8 0 [facility] Repository 10/21/2017/ [id number] Ambulatory BMSBuilding:B [place] 8 0 [facility] Repository 10/13/2017/ [id number] Ambulatory [place] 8 2 [facility] Hospital ing:PT Repository 09/08/2017 [id number] [place]ulatory [place] 0 [facility] Hospital ing:HPRAD Repository 09/08/2017/ [id number] Ambulatory BMSBuilding:B [place] 8 8 [facility] Repository 08/11/2017/ [id number] Ambulatory BMSBuilding:B [place] 8 1 [facility] Repository 08/04/2017 [id number] [place]ulatory [place] 2 [facility] Hospital ing:HPRAD Repository 08/04/2017/ [id number] Ambulatory BMSBuilding:B [place] 8 8 [facility] Repository 07/20/2017/ [id number] Ambulatory [place] 8 6 [facility] Hospital ing:[facility] Repository 07/20/2017 [id number] Ambulatory BMSBuilding:B [place] 6 [facility] Repository 07/19/2017 [id number] Ambulatory [place] 9 [facility] Hospital ing:HPRAD Repository 07/19/2017/ [id number] Ambulatory BMSBuilding:B [place] 8 9 [facility] Repository 07/12/2017 [id number] Ambulatory [place] 6 [facility] Hospital ing:[facility] Repository 07/12/2017/ [id number] Ambulatory BMSBuilding:B [place] 8 6 [facility] Repository 06/29/2017/ [id number] [place]ulatory [place] 8 0 [facility] Hospital ing:[facility] Repository 06/29/2017 [id number] Ambulatory BMSBuilding:W [place] 7 [facility] Repository 06/29/2017 [id number] Ambulatory BMSBuilding:B [place] 5 [facility] Repository 06/28/2017/ [id number] Ambulatory BMSBuilding:B [place] 8 6 [facility] Repository 06/21/2017/ [id number] Ambulatory BMSBuilding:B [place] 8 2 [facility] Repository 06/16/2017/ [id number] Ambulatory BMSBuilding:B [place] 8 3 [facility] Repository 06/14/2017/ [id number] Emergency [place] 8 0 [facility] Hospital ing:ED Repository PAYERS PAYERS ENCOUNTER GUARANTOR PAYER SUBSCRIBER SOURCE 03/30/2018 TRISH Stern Primary TRISH Stewart [place] [address] Insurance:MEDICARE MAMICHDOB: [facility] PART A [facility] [id number] Number: Repository [address]Uaj: [phone]) [id number] [phone] () Date:2018-03-30 03/30/2018 Secondary TRISH Stewart Insurance:ANTHEMPolic MAMICHDOB: Community y Number: [id number] Hospital [id number] Repository Date:5680-05-50[address] [place] [address]HV: 03/30/2018 Tertiary NOT GIVENUNK [place] Insurance:SELF PAY [facility] Number: Effective Repository Date:2018-03-30 03/30/2018 TRISH J Primary TRISH J [place] [id number] Insurance:MEDICARE MAMICHDOB: Community [place] PART A [facility] [id number] Number: Repository [address]Fny: [phone]) [id number] [phone] (HP) Date:2017-12-29 03/30/2018 Secondary TRISH J [place] Insurance:ANTHEMPolic MAMICHDOB: Community y Number: [id number] Hospital [id number] Repository Date:1647-65-74[address]VKSX[address] [place] [address]AV: 03/30/2018 Tertiary NOT GIVENUNK [place] Insurance:SELF PAY [facility] Number: Effective Repository Date:2018-03-29 02/21/2018 TRISH J Primary TRISH J [place] [id number] Insurance:MEDICARE MAMICHDOB: Community [place] PART A [facility] [id number] Number: Repository [address]Dfj: ([phone]) [id number] [phone] (HP) Date:2018-02-21 02/21/2018 Secondary TRISH J [place] Insurance:ANTHEMPolic MAMICHDOB: Community y Number: [id number] Hospital [id number] Repository Date:1164-78-90[address]IZB[address] [place] [address]OM: 02/21/2018 Tertiary NOT GIVENUNK [place] Insurance:SELF PAY [facility] Number: Effective Repository Date:2018-02-21 12/29/2017 TRISH J Primary TRISH J [place] [id number] Insurance:MEDICARE [facility]ICHDOB[facility] [id number] Number: Repository [address]Zdy: 216 [id number] [phone] (HP) Date:2017-12-29 12/29/2017 Secondary TRISH J [place] Insurance:ANTHEMPolic MAMICHDOB: Community y Number: [id number] Hospital [id number] Repository Date:0695-33-65OG [address] [place] [address]TO: 12/29/2017 Tertiary NOT GIVENUNK [place] Insurance:SELF PAY [facility] Number: Effective Repository Date:2017-12-29 12/29/2017 TRISH J Primary TRISH J [place] [id number] Insurance:MEDICARE MAMICHDOB: [facility] [id number] [place] Number[facility] Repository [address]Lpm: 216 [id number] [phone] () Date:2017-10-21 12/29/2017 Secondary TRISH J [place] Insurance:ANTHEMPolic MAMICHDOB: Community y Number: [id number]eman [id number] Repository Date:8046-45-39TE [address] [place] [address]RS: 12/29/2017 Tertiary NOT GIVENUNK [place] Insurance:SELF PAY [facility] Number: Effective Repository Date:2017-12-29 10/21/2017 TRISH J Primary TRISH J [place] [id number] Insurance:MEDICARE MAMICHDOB: [facility] PART A [facility] [id number] Medical Center [place] Number: Repository [address]Gsq: 216 [id number] [phone] (HP) Date:2017-10-12 10/21/2017 Secondary TRISH J [place] Insurance:ANTHEMPolic MAMICHDOB: Community y Number: [id number] Hospital [id number] Repository Date:3935-48-68RI [address]LUHNYJK [place] [address]ZU: 10/21/2017 Tertiary NOT GIVENUNK [place] Insurance:SELF PAY [facility] Number: Effective Repository Date:2017-10-21 10/13/2017 TRISH J Primary TRISH J [place] [id number] Insurance:MEDICARE MAMICHDOB: Community [place] PART A olic [id number] Number: Repository [address]Vxn: 216 [id number] [phone] (HP) Date:2008-05-19 10/13/2017 Secondary TRISH J [place] Insurance:ANTHEMPolic MAMICHDOB: Community y Number: [id number] Hospital [id number] Repository Date:1360-19-97JK [address] [place] [address]CI: 10/13/2017 Tertiary NOT GIVENUNK [place] Insurance:SELF PAY [facility] Number: Effective Repository Date:2017-09-08 09/08/2017 TRISH J Primary TRISH J [place] [id number] Insurance:MEDICARE MAMICHDOB: Community [place] PART A [facility] [id number] Number: Repository [address]Asl: 216 [id number] [phone] () Date:2017-09-08 09/08/2017 Secondary TRISH J [place] Insurance:ANTHEMPolic MAMICHDOB: Community y Number: [id number] Hospital [id number] Repository Date:8122-25-68ZX [address] [place] [address]UY: 09/08/2017 Tertiary NOT GIVENUNK [place] Insurance:SELF PAY [facility] Number: Effective Repository Date:2017-09-08 09/08/2017 TRISH J Primary TRISH J [place] [id number] Insurance:MEDICARE MAMICHDOB: Community [place] PART A [facility] [id number], [place] Number: Repository [address]Mvj: 216 [id number] [phone] (HP) Date:2017-08-11 09/08/2017 Secondary TRISH J [place] Insurance:ANTHEMPolic MAMICHDOB: Community y Number: [id number] Hospital [id number] Repository Date:5350-31-44DU [address] [place] [address] [place] [address]ZA: 09/08/2017 Tertiary NOT GIVENUNK [place] Insurance:SELF PAY [facility]: Effective Repository Date:2017-09-08 08/11/2017 TRISH Stern Primary TRISH J [place] [id number] Insurance:MEDICARE MAMICHDOB: Community [place] PART A [facility] [id number] [place] Number: Repository [address]Lkp: (001) [id number] [phone] (HP) Date:2017-08-04 08/11/2017 Secondary TRISH J [place] Insurance:ANTHEMPolic MAMICHDOB: Community y Number: [id number] Hospital [id number] Repository Date:8259-99-92BD [address] [place] [address]GM: 08/11/2017 Tertiary NOT GIVENUNK [place] Insurance:SELF PAY [facility] Number: Effective Repository Date:2017-08-11 08/04/2017 TRISH J Primary TRISH J [place] [id number] Insurance:MEDICARE MAMICHDOB: Community [place] PART A [facility] [id number] [facility] [place] Number: Repository [address]Tpy: ([phone]) [id number] [phone] (HP) Date:2017-08-04 08/04/2017 Secondary TRISH J [place] Insurance:ANTHEMPolic MAMICHDOB: Community y Number: [id number] Hospital [id number] Repository Date:0003-61-42HR [address]QVAQHDH, [place] [address]VK: 08/04/2017 Tertiary NOT GIVENUNK [place] Insurance:SELF PAY [facility] Number: Effective Repository Date:2017-08-04 08/04/2017 TRISH J Primary TRISH J [place] [id number] Insurance:MEDICARE MAMICHDOB: Community [place] PART A [facility] [id number] Medical Center [place] Number: Repository [address]Jin: (340) [id number] [phone] (HP) Date:2017-07-21 08/04/2017 Secondary TRISH J [place] Insurance:ANTHEMPolic MAMICHDOB: Community y Number: [id number] Hospital [id number] Repository Date:9123-82-25ND [address] [place] [address]BJ: 08/04/2017 Tertiary NOT GIVENUNK [place] Insurance:SELF PAY [facility] Number: Effective Repository Date:2017-08-04 07/20/2017 TRISH J Primary TRISH J [place] [id number] Insurance:MEDICARE MAMICHDOB: Community [place] PART A [facility] [id number] Medical Center [place] Number: Repository [address]Cyv: ([phone]) [id number] [phone] () Date:2017-07-19 07/20/2017 Secondary TRISH J [place] Insurance:ANTHEMPolic MAMICHDOB: Community y Number: [id number] Hospital [id number] Repository Date:2409-77-46HV [address]AVNWLME, [place] [address]SL: 07/20/2017 Tertiary NOT GIVENUNK [place] Insurance:SELF PAY [facility] Number: Effective Repository Date:2017-07-19 07/20/2017 TRISH J Primary TRISH J [place] [id number] Insurance:MEDICARE MAMICHDOB: Community [place] PART A [facility] [id number], [place] Number: Repository [address]Axo: [phone]) [id number] [phone] () Date:2017-07-19 07/20/2017 Secondary TRISH J [place] Insurance:ANTHEMPolic MAMICHDOB: Community y Number: [id number] Hospital [id number] Repository Date:4036-33-67LR [address]OTKMU, [place] [address]TM: 07/20/2017 Tertiary NOT GIVENUNK [place] Insurance:SELF PAY [facility] Number: Effective Repository Date:2017-07-20 07/19/2017 TRISH J Primary TRISH J [place] [id number] Insurance:MEDICARE MAMICHDOB: [facility] A [facility] [id number] Medical Center [place] Number: Repository [address]Flj: 216 [id number] [phone] (HP) Date:2017-07-19 07/19/2017 Secondary TRISH J [place] Insurance:ANTHEMPolic MAMICHDOB: Community y Number: [id number] Hospital [id number] Repository Date:7686-82-40HD [address] [place] [address]NI: 07/19/2017 Tertiary NOT GIVENUNK [place] Insurance:SELF PAY [facility] Number: Effective Repository Date:2017-07-19 07/19/2017 TRISH J Primary TRISH J [place] [id number] Insurance:MEDICARE MAMICHDOB: [facility] A [facility] [id number][place] Number: Repository [address]Wga: 216 [id number] [phone] () Date:2017-07-12 07/19/2017 Secondary TRISH J [place] Insurance:ANTHEMPolic MAMICHDOB: Community y Number: [id number] Kaseman [id number] Repository Date:4443-46-87[address] [place] [address]VO: 07/19/2017 Tertiary NOT GIVENUNK [place] Insurance:SELF PAY [facility] Number: Effective Repository Date:2017-07-19 07/12/2017 TRISH J Primary TRISH J [place] [id number] Insurance:MEDICARE MAMICHDOB: [facility] PART A [facility] [id number], [place] Number: Repository [address]Pru: 216 [id number] [phone] (HP) Date:2017-07-12 07/12/2017 Secondary TRISH J [place] Insurance:ANTHEMPolic MAMICHDOB: Community y Number: [id number] Hospital [id number] Repository Date:7971-39-89XZ [address]OXGOBKY [place] [address]RF: 07/12/2017 Tertiary NOT GIVENUNK [place] Insurance:SELF PAY [facility] Number: Effective Repository Date:2017-07-12 07/12/2017 TRISH J Primary TRISH J [place] [id number] Insurance:MEDICARE MAMICHDOB: Community [place] PART A [facility] [id number], [place] Number: Repository [address]Fjx: 216 [id number] [phone] (HP) Date:2017-07-06 07/12/2017 Secondary TRISH J [place] Insurance:ANTHEMPolic MAMICHDOB: Community y Number: [id number] Hospital [id number] Repository Date:3649-29-33LZ [address] [place] [address] 911[address]XP: 07/12/2017 Tertiary NOT GIVENUNK [place] Insurance:SELF PAY [facility] Number: Effective Repository Date:2017-07-06 06/29/2017 TRISH J Primary TRISH J [place] [id number] Insurance:MEDICARE MAMICHDOB: Community [place] PART A [facility] [id number], [place] Number: Repository [address]Zox: 216 [id number] [phone] (HP) Date:2017-06-16 06/29/2017 Secondary TRISH J [place] Insurance:ANTHEMPolic MAMICHDOB: Community y Number: [id number] Hospital [id number] Repository Date:1101-16-25PG [address]UUDUMVG [place] [address]XZ: 06/29/2017 Tertiary NOT GIVENUNK [place] Insurance:SELF PAY [facility] Number: Effective Repository Date:2017-06-16 06/29/2017 TRISH J Primary TRISH J [place] [id number] Insurance:MEDICARE MAMICHDOB: Community [place] PART A [facility] [id number], [place] Number: Repository [address]Eib: 216 [id number] [phone] (HP) Date:2017-06-16 06/29/2017 Secondary TRISH J [place] Insurance:ANTHEMPolic MAMICHDOB: Community y Number: [id number] Hospital [id number] Repository Date:9688-09-94RP [address]WXQECSO, [place] [address]SY: 06/29/2017 Tertiary NOT GIVENUNK [place] Insurance:SELF PAY [facility] Number: Effective Repository Date:2017-06-29 06/29/2017 TRISH J Primary TRISH J [place] [id number] Insurance:MEDICARE MAMICHDOB: Community [place] PART A [facility] [id number] [facility] Number: Repository [address]Mqj: ([phone]) [id number] [phone] (HP) Date:2017-06-16 06/29/2017 Secondary TRISH J [place] Insurance:ANTHEMPolic MAMICHDOB: Community y Number: [id number] Hospital [id number] Repository Date:3439-17-05VA [address]WH[address] [place] [address]TN: 06/29/2017 Tertiary NOT GIVENUNK [place] Insurance:SELF PAY [facility] Number: Effective Repository Date:2017-06-29 06/28/2017 TRISH J Primary TRISH J [place] [id number] Insurance:MEDICARE MAMICHDOB: Community [place] PART A [facility] [id number] VA [facility], [place] Number: Repository [address]Mll: (208) [id number] [phone] (HP) Date:2017-06-21 06/28/2017 Secondary TRISH J [place] Insurance:ANTHEMPolic MAMICHDOB: Community y Number: [id number] Hospital [id number] Repository Date:4603-74-96LF [address] [place] [address]WX: 06/28/2017 Tertiary NOT GIVENUNK [place] Insurance:SELF PAY [facility] Number: Effective Repository Date:2017-06-21 06/21/2017 TRISH J Primary TRISH J [place] [id number] Insurance:MEDICARE MAMICHDOB: Community [place] PART A [facility] [id number] [facility] Number: Repository [address]Igh: (262) [id number] [phone] (HP) Date:2017-06-16 06/21/2017 Secondary TRISH J [place] Insurance:ANTHEMPolic MAMICHDOB: Community y Number: [id number] Hospital [id number] Repository Date:7739-63-65BJ [address], [place] [address]PL: 06/21/2017 Tertiary NOT GIVENUNK [place] Insurance:SELF PAY [facility] Number: Effective Repository Date:2017-06-21 06/16/2017 TRISH J Primary TRISH J [place] [id number] Insurance:MEDICARE MAMICHDOB: Community [place] PART A olic [id number], [place] Number: Repository [address]Fts: ([phone]) [id number] [phone] (HP) Date:2017-06-15 06/16/2017 Secondary TRISH J [place] Insurance:ANTHEMPolic MAMICHDOB: Community y Number: [id number] Hospital [id number] Repository Date:2447-21-66EX [address]WDCDCYJ, [place] [address]ZV: 06/16/2017 Tertiary NOT GIVENUNK [place] Insurance:SELF PAY [facility] Number: Effective Repository Date:2017-06-15 06/14/2017 Trish J Primary Trish J [place] [id number] Insurance:MEDICARE MamichDOB: Community [place] PART A [facility] [id number], [place] Number: Repository [address]Fjv: (119) [id number] [phone] (HP) Date:2017-06-14 06/14/2017 Secondary Trish J [place] Insurance:ANTHEMPolic MamichDOB: Community y Number: [id number] Hospital [id number] Repository Date:6680-53-21KU [address]IDNFMDO, [place] [address]IY: 06/14/2017 Tertiary NOT GIVENUNK [place] Insurance:SELF PAY [facility] Number: Effective Repository Date:2017-06-14
== END ==
PROVIDERS: Referring Provider Physician Assistant; Visit Provider Physician Assistant
DX: S82.842A Displaced bimalleolar fracture of left lower leg, initial encounter for closed fracture (principal)
CPT/HCPCS: 73610

== ENCOUNTER → 2018-08-22 08:25 | Outpatient (CLI) | payer MEDICARE, BC, SELFPAY ==
[2018-08-22 10:35] LABS: Absolute Lymphocyte Count 1.02 X10^3/ul (0.83-4.51); Absolute Neutrophil Count 3.4 X10^3/uL (2.0-7.7); Basophil# 0.06 X10^3/uL; Basophil% 1.1 % (0-1); Eosinophil# 0.25 X10^3/uL; Eosinophils% 4.8 % (0-5); Hematocrit 32.8 % (40-54); Hemoglobin 10.8 g/dl (13.0-16.5); Lymphocyte # 1.02 X10^3/ul (4.0); Lymphocyte % 19.4 % (19-41); Mean Corp Hgb Conc 32.9 g/gl (32-36); Mean Corpuscular Hgb 30.1 pg (27.0-32.0); Mean Corpuscular Volume 91.4 fL (80-94); Monocyte# 0.48 X10^3/uL; Monocyte% 9.1 % (0-10); Neutrophil # 3.44 X10^3/uL (2.7-7.7); Neutrophil % 65.4 % (47-70); Platelet Count 324 K/mm3 (150-450); RBC Distribution Width CV 15.2 % (11.6-14.6); RBC Distribution Width SD 49.5 fl (35.1-43.9); Red Blood Count 3.59 M/mm3 (4.6-6.2); White Blood Count 5.3 K/mm3 (4.4-11.0)
[2018-08-22 10:42] LABS: POSITIVE COUNT NO; POSITIVE DIFFERENTIAL NO; POSITIVE MORPHOLOGY NO
[2018-08-22 10:44] LABS: Color, Urine Yellow (Yellow); Glucose, Dipstick Normal (Normal); Ketone-Dipstick Negative (Negative); Leukocyte Esterase-Dipstick Negative /ul (Negative); Nitrite-Dipstick Negative (Negative); Occult Blood-Urine 10 /ul (Negative); Protein-Dipstick Negative (Negative); Urine Bilirubin Dipstick Negative (Negative); Urine Clarity Clear (Clear); Urine Urobilinogen Normal (Normal)
[2018-08-22 10:47] LABS: Hemoglobin A1c 5.6 % (4.2-6.3)
[2018-08-22 10:50] LABS: AST(SGOT) 26 U/L (15-37); Alanine Aminotransfer ALT/SGPT 28 U/L (16-61); Albumin, Serum 3.7 g/dL (3.2-5.0); Alkaline Phosphatase 96 U/L (45-117); Anion Gap 5 (5-15); BUN 20 mg/dL (7-18); BUN/Creat Ratio 20.3 RATIO (10-20); Calcium,Total 8.4 mg/dL (8.5-10.1); Chloride 109 mmol/L (98-107); Cholesterol 104 mg/dL (200); Creatinine, Serum 0.99 mg/dL (0.70-1.30); EST Glomerular Filtration Rate 79 mL/min (>60); Est Glom Filt Rate - Afr Amer 95 mL/min (>60); Globulin 3.7 g/dL (2.2-4.2); Glucose 90 mg/dL (74-106); High Density Lipoprotein 44 mg/dL; PSA,Total - Annual Screen 1.36 ng/mL (0.00-4.00); Potassium 3.9 mmol/L (3.5-5.1); Protein, Total 7.4 g/dL (6.4-8.2); Sodium Level 138 mmol/L (136-145); Triglycerides 82 mg/dL; Very Low Density Lipoprotein 16 mg/dL (5-40)
== END ==
PROVIDERS: Referring Provider Family Medicine; Visit Provider Family Medicine
DX: Z00.00 Encounter for general adult medical examination without abnormal findings (principal); Z12.5 Encounter for screening for malignant neoplasm of prostate; E74.39 Other disorders of intestinal carbohydrate absorption; E78.00 Pure hypercholesterolemia, unspecified; I10 Essential (primary) hypertension
CPT/HCPCS: 36415; 80053; 80061; 81002; 83036; 84153; 85025; G0103

== ENCOUNTER → 2019-03-12 08:33 | Outpatient (CLI) | payer MEDICARE, BC, SELFPAY ==
[2019-03-12 10:35] LABS: ALB/GLOB Ratio 0.9 RATIO (0.9-2.4); AST(SGOT) 22 U/L (15-37); Alanine Aminotransfer ALT/SGPT 19 U/L (16-61); Albumin, Serum 3.5 g/dL (3.2-5.0); Alkaline Phosphatase 107 U/L (45-117); Anion Gap 7 (5-15); BUN 19 mg/dL (7-18); Calcium,Total 8.5 mg/dL (8.5-10.1); Chloride 111 mmol/L (98-107); Cholesterol 99 mg/dL (200); EST Glomerular Filtration Rate 77 mL/min (>60); Est Glom Filt Rate - Afr Amer 94 mL/min (>60); Globulin 3.8 g/dL (2.2-4.2); Glucose 80 mg/dL (74-106); High Density Lipoprotein 43 mg/dL; Potassium 3.8 mmol/L (3.5-5.1); Protein, Total 7.3 g/dL (6.4-8.2); Sodium Level 142 mmol/L (136-145); Triglycerides 62 mg/dL; Very Low Density Lipoprotein 12 mg/dL (5-40)
[2019-03-12 11:03] LABS: Hemoglobin A1c < 3.5 % (4.2-6.3)
== END ==
PROVIDERS: Referring Provider Family Medicine; Visit Provider Family Medicine
DX: E74.39 Other disorders of intestinal carbohydrate absorption (principal); E78.00 Pure hypercholesterolemia, unspecified; I10 Essential (primary) hypertension
CPT/HCPCS: 36415; 80053; 80061; 83036

== ENCOUNTER → 2019-08-24 08:18 | Outpatient (CLI) | payer MEDICARE, BC, SELFPAY ==
[2019-08-24 09:53] LABS: Absolute Lymphocyte Count 0.82 X10^3/uL (0.83-4.51); Absolute Neutrophil Count 3.1 X10^3/uL (2.0-7.7); Basophil# 0.05 X10^3/uL; Basophil% 1.1 % (0-1); Eosinophil# 0.23 X10^3/uL; Hematocrit 24.9 % (40-54); Lymphocyte # 0.82 X10^3/ul (4.0); Lymphocyte % 17.7 % (19-41); Mean Corp Hgb Conc 28.1 g/dL (32-36); Mean Corpuscular Hgb 19.2 pg (27.0-32.0); Mean Corpuscular Volume 68.4 fL (80-94); Mean Platelet Vol. 9.1 fl (6.2-12.0); Monocyte# 0.46 X10^3/uL; NRBC Flagged by Analyzer 0 % (0-5); Neutrophil # 3.05 X10^3/uL (2.7-7.7); POSITIVE MORPHOLOGY YES; Platelet Count 408 K/mm3 (150-450); RBC Distribution Width CV 21.7 % (11.6-14.6); RBC Distribution Width SD 52.2 fl (35.1-43.9); Red Blood Count 3.64 M/mm3 (4.6-6.2); White Blood Count 4.6 K/mm3 (4.4-11.0)
[2019-08-24 09:54] LABS: Color, Urine Yellow (Yellow); Differential Indicated SCAN CRITERIA MET; Glucose, Dipstick Normal (Normal); Ketone-Dipstick Negative (Negative); Leukocyte Esterase-Dipstick Negative /ul (Negative); Nitrite-Dipstick Negative (Negative); Occult Blood-Urine Negative /ul (Negative); Protein-Dipstick Negative (Negative); Specific Gravity, Urine 1.005 (1.002-1.030); Urine Bilirubin Dipstick Negative (Negative); Urine Clarity Clear (Clear); Urine Urobilinogen Normal (Normal)
[2019-08-24 10:15] LABS: ALB/GLOB Ratio 0.9 RATIO (0.9-2.4); AST(SGOT) 19 U/L (15-37); Alanine Aminotransfer ALT/SGPT 21 U/L (16-61); Albumin, Serum 3.4 g/dL (3.2-5.0); Alkaline Phosphatase 109 U/L (45-117); Anion Gap 7 (5-15); BUN 17 mg/dL (7-18); BUN/Creat Ratio 20.4 RATIO (10-20); Calcium,Total 8.7 mg/dL (8.5-10.1); Chloride 106 mmol/L (98-107); Cholesterol 96 mg/dL (200); Creatinine, Serum 0.84 mg/dL (0.70-1.30); EST Glomerular Filtration Rate 95 mL/min (>60); Est Glom Filt Rate - Afr Amer 115 mL/min (>60); Globulin 3.8 g/dL (2.2-4.2); Glucose 87 mg/dL (74-106); High Density Lipoprotein 36 mg/dL; Potassium 3.9 mmol/L (3.5-5.1); Protein, Total 7.2 g/dL (6.4-8.2); Sodium Level 138 mmol/L (136-145); Triglycerides 81 mg/dL; Very Low Density Lipoprotein 16 mg/dL (5-40)
[2019-08-24 10:26] LABS: Anisocytosis 1+
[2019-08-24 10:31] LABS: Hemoglobin A1c 5.3 % (4.2-6.3)
== END ==
PROVIDERS: Referring Provider Family Medicine; Visit Provider Family Medicine
DX: Z00.00 Encounter for general adult medical examination without abnormal findings (principal); Z12.5 Encounter for screening for malignant neoplasm of prostate; E78.00 Pure hypercholesterolemia, unspecified; I10 Essential (primary) hypertension; E74.39 Other disorders of intestinal carbohydrate absorption
CPT/HCPCS: 36415; 80053; 80061; 81002; 83036; 84153; 85025; G0103

== ENCOUNTER → 2020-02-25 14:24 | Outpatient (CLI) | payer MEDICARE, BC, SELFPAY | PROVIDERS: Referring Provider Family Medicine; Visit Provider Family Medicine | DX: Z00.00 Encounter for general adult medical examination without abnormal findings (principal) ==